=== PATIENT | female | born 1950 | race American Indian/Alaskan Native ===

== ENCOUNTER 2019-03-03 14:01 | Outpatient (CLI) | payer MEDICARE ==
--- NOTE | 2019-03-03 16:36 | Ultrasound Report ---
Bilateral complete breast ultrasound. Clinical History: Patient has recent diagnosis of invasive carcinoma in the right breast. Abnormal ri ght axillary lymph nodes noted on recent MRI. Additionally left breast mass identified on recent MRI Procedure: Real-time ultrasound was utilized to evaluate both breasts. Complete sonographic evaluati on of both breasts including imaging of the 4 quadrants and subareolar areas, as well as both axillas was performed. Comparison: Prior breast MRI, 01/21/2019 and recent bilateral diagnostic mammogram, 03/01/2019 Findings: In the right breast, in the area of the patient's known breast carcinoma at 8-9:00 2 cm fro m the nipple, there is an irregular solid mass measuring 4.2 x 2.6 x 2.4 cm. The mass is very superfi cial and comes within 1-2 mm of the skin. Additionally, at 10:00 5 cm from the nipple there is an irr egular hypoechoic masslike area measuring 2.1 x 0.9 x 1.5 cm. This is suspicious for satellite neopl asm. At 6:00, 4 cm from the nipple, there is a vague hypoechoic area which I suspect will represent d ense fibroglandular tissue. Within the right axilla, there are a few mildly enlarged lymph nodes with diffuse cortical thickening . One of the lymph nodes has prominent focal cortical thickening of 8 mm. In the left breast, in the region of the, MRI and mammographic abnormality at 1:00, there is a hypoe choic irregular mass measuring 5.0 x 3.4 x 2.1 cm. This mass is located 4.5 cm from the nipple. At 12 :00 there is a small hypoechoic irregular mass measuring 8 mm in diameter. At 4:00 7 cm from the nipp le there is a vague hypoechoic area which could just represent fibroglandular tissue. Within the left axilla there is a single lymph node with mild cortical thickening of 4 mm. Impression: 1.4.2 cm biopsy proven breast carcinoma in the right breast at 8-9:00. There is a second masslike are a at 10:00 measuring 2.1 cm in diameter that could represent additional site of malignancy. Multiple abnormal right axillary lymph nodes. 2. There is a 5.0 cm malignant appearing mass in the left breast at 1:00. This corresponds to MRI and mammographic abnormality and is highly suggestive of a breast carcinoma. There are 2 additional abno rmal areas within the left breast, at 12:00 and 4:00 which could represent additional sites of tumor. There is a single left axillary lymph node that demonstrates mild cortical thickening. 3. Right axillary lymph node was biopsied following ultrasound. 4. Malignant-appearing left breast mass at 1:00 will require further evaluation with percutaneous bio psy. Signer Name: Ninfa Kumari MD Signed: 03/03/2019 4:31 PM Workstation Name: [id number]
--- NOTE | 2019-03-03 16:46 | Ultrasound Report ---
ULTRASOUND-GUIDED NEEDLE CORE BIOPSY RIGHT AXILLARY LYMPH NODE WITH CLIP PLACEMENT CLINICAL: Patient has biopsy-proven right breast invasive carcinoma. Recent breast MRI demonstrated a bnormal right axillary lymph nodes. Ultrasound-guided biopsy was requested. FINDINGS: The procedure was explained to the patient and informed consent was obtained. Ultrasound demonstrated the previously identified enlarged right axillary lymph nodes.. The axillary lymph node with the most prominent cortical thickening was selected for biopsy. I marked the breast with a felt tip marker and a timeout was called. The skin was prepped with chlorh exidine and anesthetized with 1% lidocaine. Needle core biopsy was performed through small dermatotomy using ultrasound guidance, 2% lidocaine wi th epinephrine for deep anesthesia and a 14-gauge Achieve biopsy device. 3 cores were obtained and pl aced in formalin. A clip was deployed within the lesion. The patient tolerated the procedure well and there were no apparent convocations. Hemostasis was achi eved with minimal effort and a sterile dressing was applied. Postprocedure mammogram was not obtained due to the axillary location of the lymph node. She left the department in good condition and was given instructions for wound care and follow-up. IMPRESSION: Uncomplicated ultrasound guided needle core biopsy with clip placement right axillary lym ph node. Signer Name: Ninfa Kumari MD Signed: 03/03/2019 4:41 PM Workstation Name: [id number]
== END 2019-03-03 14:02 | disposition home or self-care (01) ==
LOC: SPVWC 14:01
PROVIDERS: ATTEND Surgery
DX: C77.3 Secondary and unspecified malignant neoplasm of axilla and upper limb lymph nodes (principal); C50.911 Malignant neoplasm of unspecified site of right female breast; F17.210 Nicotine dependence, cigarettes, uncomplicated; Z91.041 Radiographic dye allergy status; Z79.899 Other long term (current) drug therapy; Z88.8 Allergy status to other drugs, medicaments and biological substances
CPT/HCPCS: 38505; 76942; 88305

== ENCOUNTER 2019-03-08 13:01 | Outpatient (CLI) | payer MEDICARE ==
--- NOTE | 2019-03-08 15:57 | Ultrasound Report ---
Ultrasound guided left breast biopsy INDICATION: Known right breast cancer, left breast masses COMPARISON: Bilateral breast ultrasound 03/03/2019 Procedure was discussed at length with the patient including possible risks and benefits. Possibility of bleeding and hematoma were discussed. Patient does not have pertinent allergies and is not on ant icoagulant therapy. Opportunity for questions was given. Timeout was performed. The largest of the re cently discovered left breast lesions in the 1:00 position was targeted. Using local anesthesia and a septic technique, under direct sonographic guidance, a 14-gauge Achieve biopsy device was used to obt ain 3 core samples from this mass. A clip was left in place at the end of the procedure at the margin of the mass. Site was secured. Patient tolerated the procedure well. Ultrasound-guided left axillary lymph node biopsy INDICATION: No right breast cancer, left breast masses, single axillary node with cortical thickening COMPARISON: Bilateral breast ultrasound 03/03/2019 Procedure was discussed at length with the patient including possible risks and benefits. Possibility of bleeding and hematoma were discussed. Patient does not have pertinent allergies and is not on ant icoagulant therapy. Opportunity for questions was given. Timeout was performed. Using aseptic techniq ue and local anesthesia, under direct sonographic guidance, an 18-gauge Achieve biopsy device was use d to obtain a single core sample through this node. After this sample was performed the node became d ifficult to clearly identify in the heterogenous axillary tissue. A clip was not left in place due to uncertainty in position. No hematoma was observed and no immediate complication occurred. Patient to lerated the procedure well and left the ultrasound suite for postbiopsy mammogram. [facility] IMPRESSION: Successful biopsies of the largest of the left breast masses and of a small left axillary node. Signer Name: Emory Live MD Signed: 03/08/2019 3:53 PM Workstation Name: [id number]
--- NOTE | 2019-03-08 16:00 | Mammography Report ---
Postbiopsy left mammogram 03/01/2019 INDICATION: Ultrasound-guided biopsy today A marker was performed to document position of a biopsy clip following ultrasound-guided left breast biopsy. Clip is seen at the margin of an area density and distortion in the upper outer quadrant post eriorly appearing to be in appropriate position. Signer Name: Emory Live MD Signed: 03/08/2019 3:56 PM Workstation Name: [id number]
== END 2019-03-08 13:02 | disposition home or self-care (01) ==
LOC: SPVWC 13:01
PROVIDERS: ATTEND Surgery
DX: C50.412 Malignant neoplasm of upper-outer quadrant of left female breast (principal); C50.411 Malignant neoplasm of upper-outer quadrant of right female breast; I89.8 Other specified noninfective disorders of lymphatic vessels and lymph nodes
CPT/HCPCS: 38505; 76942; 88305; 88341; 88342

== ENCOUNTER 2019-03-23 08:22 | Day surgery (SDC) | payer MEDICARE ==
--- NOTE | 2019-03-23 09:17 | Anesthesia Consultation ---
Anesthesia Consult and Med Hx Date of service: 03/23/19 - Airway Anesthetic Teeth Evaluation: Good ROM Head & Neck: Adequate Mental/Hyoid Distance: Adequate Mallampati Class: Class II Intubation Access Assessment: Good - Pulmonary Exam CTA: Yes - Cardiac Exam Cardiac Exam: RRR - Pre-Operative Health Status ASA Pre-Surgery Classification: ASA3 Proposed Anesthetic Plan: MAC - Pulmonary Hx Smoking: Yes (1 PPD X 40 YRS) Hx Sleep Apnea: No (MIGUEL PRE SCREEN LOW RISK) - Cardiovascular System Hx Hypertension: Yes (X 5 YRS) - Central Nervous System Hx Back Pain: Yes (SCIATIC PAIN)
--- NOTE | 2019-03-23 09:17 | Anesthesia Day of Surgery ---
Anesthesia Day of Surgery - Day of Surgery Patient Examined: Yes Patient H&P Reviewed: Yes Patient is NPO: Yes
[2019-03-23] MEDS ORDERED: ZOFRAN IV PRN (09:18)
[2019-03-23] MEDS ORDERED: DILAUDID IV PRN (09:18)
[2019-03-23] MEDS ORDERED: VERSED IV NR (10:00)
[2019-03-23] MEDS ORDERED: LACTATED RINGERS 1,000 ML IV SCH (10:00)
[2019-03-23] MEDS ORDERED: HEPARIN 10,000 UNITS/10 ML ONE (10:33)
[2019-03-23] MEDS ORDERED: MARCAINE 0.25% INFILTRATI ONE ×2 (10:33→11:24)
[2019-03-23] MEDS ORDERED: XYLOCAINE 1% 20 mL ONE (10:33)
[2019-03-23] MEDS ORDERED: NACL 0.9% 100 ML ONE (10:34)
[2019-03-23] MEDS ORDERED: SUBLIMAZE ONE (10:47)
[2019-03-23] MEDS ORDERED: DIPRIVAN 10 MG/ML IV ONE (10:47)
[2019-03-23] MEDS ORDERED: KETAMINE 50 MG/ML-WATER SYRING ONE (10:48)
[2019-03-23] MEDS ORDERED: NACL 0.9% IR ONE (11:23)
[2019-03-23] MEDS ORDERED: HEPARIN 10,000 UNITS/10 ML IV ONE (11:24)
[2019-03-23] MEDS ORDERED: NACL 0.9% IV ONE (11:24)
[2019-03-23] MEDS ORDERED: XYLOCAINE 1% 20 mL INFILTRATI ONE (11:24)
--- NOTE | 2019-03-23 12:11 | Short Stay Summary ---
Short Stay Documentation Date of service: 03/23/19 - History Principal diagnosis: breast cancer H&P: obtained from office - Allergies and Medications Current Medications: Allergies Iodinated Contrast- Oral and IV Dye Allergy (Verified 03/22/19 16:31) Swelling , ITCHING TEGADERM DRESSING Adverse Reaction (Uncoded 03/22/19 16:31) BLISTERS , ITCHING Home Medications Medication Instructions Recorded Confirmed Last Taken Type Carvedilol [Coreg] 6.25 mg PO BID 03/22/19 03/23/19 03/22/19 09:00 History Darunavir/Cob/Emtri/Tenof Alaf 1 each PO DAILY 03/22/19 03/23/19 03/22/19 09:00 History [Symtuza [phone] mg Tab] Fluticasone [Flonase] 1 spray NS BID 03/22/19 03/23/19 03/22/19 07:00 History Losartan/Hydrochlorothiazide 1 each PO DAILY 03/22/19 03/23/19 03/22/19 09:00 History [Losartan-Hctz 100-25 mg Tab] Naproxen [EC-Naproxen] 500 mg PO PRN PRN 03/22/19 03/23/19 03/22/19 19:00 History hydrOXYzine HCL [Atarax] 10 mg PO Q6HR PRN 03/22/19 03/23/19 03/22/19 07:00 History Active Medications Hydromorphone HCl (Dilaudid) 0.5 mg IV Q10MIN PRN PRN Reason: Pain , Severe (7-10) Stop: 03/23/19 20:00 Lactated Ringer's (Lactated Ringers) 1,000 mls @ 100 mls/hr IV DIRECT HALINA Last Admin: 03/23/19 09:45 Dose: 100 mls/hr Documented by: Midazolam HCl (Versed) 2 mg IV PREOP NR Stop: 03/23/19 23:59 Last Admin: 03/23/19 10:20 Dose: 2 mg Documented by: Ondansetron HCl (Zofran) 4 mg IV ONCE PRN PRN Reason: Nausea And Vomiting - Brief post op/procedure progress note Date of procedure: 03/23/19 Pre-op diagnosis: breast cancer Post-op diagnosis: same Procedure: Left internal jugular port placement with mindray ultrasound guidance Anesthesia: MAC, local Findings: good placement of port without PTX on post op CXR Surgeon: ALEXYS VENTURA Estimated blood loss: minimal Pathology: none Condition: stable - Hospital course Hospital course: Pt observed in PACU and discharged to home in stable condition when criteria met - Disposition Condition at discharge: Good Disposition: DC-01 TO HOME OR SELFCARE Short Stay Discharge Plan Activity: advance as tolerated Diet: regular Wound: open to air, per your surgeon's advice Additional Instructions: SEE PRINTED DISCHARGE PAPERWORK Follow up with: EUFEMIA VALDEZ DO [Primary Care Provider] - 7 Days ALEXYS VENTURA DO [Staff Physician] - 10 Days Prescriptions: HYDROcodone/APAP 5-325 [[place] 5/325] 1 each PO Q6HR PRN #15 tablet PRN Reason: Pain
--- NOTE | 2019-03-23 12:47 | Fluoroscopy Report ---
FL central venous dev plct INDICATION / CLINICAL INFORMATION: BILATERAL BREAST CANCER.. Port-A-Cath placement. COMPARISON: None available. FINDINGS: An AP view of the chest reveals a left subclavian Port-A-Cath with the tip overlying the mid right at rium. There is no evidence of pneumothorax. The heart size is borderline. Pulmonary vasculature is no rmal and the lungs are clear. Fluoroscopy time: 0.6 minutes. Fluoroscopic images: 1. IMPRESSION: New left jugular Port-A-Cath with the tip overlying the mid right atrium. No evidence of pneumothorax. Signer Name: Jake Wilson MD Signed: 03/23/2019 12:42 PM Workstation Name: [id number]
--- NOTE | 2019-03-23 13:45 | Operative Report ---
PREOPERATIVE DIAGNOSIS: Breast cancer. POSTOPERATIVE DIAGNOSIS: Breast cancer. PROCEDURE: Left internal jugular port placement with Mindray ultrasound guidance. ANESTHESIA: MAC local. FINDINGS: Good placement of port without pneumothorax and postop chest x-ray. SURGEON: Hannah Hartley DO ESTIMATED BLOOD LOSS: Minimal. PATHOLOGY: None. CONDITION ON DISPOSITION: The patient is stable to PACU. HISTORY OF PRESENT ILLNESS AND INDICATION: The patient is a 68-year-old female who was recently diagnosed with bilateral breast cancer. She was deemed a candidate for chemotherapy via outpatient Oncology and referred to surgery for port placement. I discussed all risks, benefits and alternatives to surgery with the patient and questions answered. Consent obtained. PROCEDURE IN DETAIL: The patient was identified in the preoperative area and taken back to the operating room and placed on the operating table in supine position. After anesthesia was induced, bilateral arms were tucked and all bony prominences padded and a shoulder roll was placed. The upper chest and neck was prepped and draped in the usual sterile fashion. Timeout performed. Using ultrasound guidance, the left subclavian vein and left internal jugular vein were both identified. The left subclavian vein was deep and the internal jugular vein was chosen for access. The skin was anesthetized with local anesthetic and the internal jugular vein on the left accessed on the first stick using ultrasound guidance. There was return of dark red nonpulsatile blood. The wire was threaded without resistance and the positioning confirmed using fluoroscopy. The wire was secured to the drapes using hemostat. I then turned my attention to creating a pocket. A 4-cm transverse incision was made in the left upper chest using a 15 blade after the skin was anesthetized with local anesthetic. Dissection was carried down through the skin and subcutaneous tissue using Bovie electrocautery with hemostasis achieved along the way. Once the prepectoral fascia was reached, a subcutaneous pocket was created for the port using combination of blunt dissection and electrocautery. The pocket was checked for hemostasis, which was carefully ensured. The catheter was then tunneled from the pocket to the wire and a dilator breakaway catheter sheath then inserted over the wire under direct fluoroscopic visualization. The wire and dilator were removed and the catheter was threaded through the breakaway sheath and the breakaway sheath removed in the usual fashion. The tip of the catheter was seen in the right atrium and pulled back until it was at the cavoatrial junction. The entire course of the catheter was identified under fluoroscopy and there were no kinks. The catheter was cut to size and the port assembled in the usual fashion. The port was then sutured into place in two locations using 2-0 Vicryl interrupted sutures to the prepectoral fascia. The port was tested with heparinized saline. There was return of dark red blood and the port flushed easily. The port was then instilled with 3000 units of heparin. The pocket was irrigated and hemostasis ensured. The deep dermal layer was then closed with 3-0 Vicryl interrupted sutures and the skin incisions were both closed with 4-0 Monocryl subcuticular stitches and skin glue. At the end of the case, all sponge, instrument and sharp counts were correct x 2. A postoperative chest x-ray in the OR showed good positioning of the port without pneumothorax. The patient was then taken to PACU in stable condition. JOB# [id number] JONN/OXANA
--- NOTE | 2019-03-23 13:47 | Post Anesthesia Evaluation ---
- Post Anesthesia Evaluation Patient Participated: Yes Airway Patent: Yes Stable Respiratory Function: Yes Nausea/Vomiting: No Temp > 96.8F: Yes Pain Manageable: Yes Adequeate Hydration: Yes Anesthesia Complications: No Block Receding Appropriately: Not Applicable Patient on Ventilator: No
[2019-03-23 15:46] VITALS: BP 152/82
== END 2019-03-23 08:23 | disposition home or self-care (01) ==
LOC: OR 08:22
PROVIDERS: ATTEND Surgery
DX: C50.411 Malignant neoplasm of upper-outer quadrant of right female breast (principal); I10 Essential (primary) hypertension; F17.210 Nicotine dependence, cigarettes, uncomplicated; Z91.041 Radiographic dye allergy status; Z88.8 Allergy status to other drugs, medicaments and biological substances; Z79.899 Other long term (current) drug therapy; Z90.49 Acquired absence of other specified parts of digestive tract; Z90.710 Acquired absence of both cervix and uterus; Z98.890 Other specified postprocedural states; Z86.2 Personal history of diseases of the blood and blood-forming organs and certain disorders involving the immune mechanism
CPT/HCPCS: 36415; 36561; 77001; 84132; C1769; C1788; J1644; J2250; J2704; J3010; J7120

== ENCOUNTER 2019-04-22 09:42 | Outpatient (CLI) | payer MEDICARE ==
--- NOTE | 2019-04-22 14:31 | Nuclear Medicine Report ---
Bone Scan HISTORY: C50.912 MALIGNANT NEOPLASM OF UNSPECIFIED SITE OF LEFT BREAST. TECHNIQUE: Patient was given 26.9 mCi of technetium MDP. COMPARISON: None FINDINGS: No abnormal radiotracer uptake identified to suggest metastatic disease. Mild degenerative uptake in the spine, shoulders, hips, and extremities. IMPRESSION: No evidence of metastatic disease. Signer Name: Bear Choudhury MD Signed: 04/22/2019 2:27 PM Workstation Name: [id number]
== END 2019-04-22 09:43 | disposition home or self-care (01) ==
LOC: NM 09:42
PROVIDERS: ATTEND Internal Medicine Hematology
DX: C50.911 Malignant neoplasm of unspecified site of right female breast (principal); C50.912 Malignant neoplasm of unspecified site of left female breast; B20 Human immunodeficiency virus [HIV] disease; I10 Essential (primary) hypertension; Z90.710 Acquired absence of both cervix and uterus
CPT/HCPCS: 78306; A9503

== ENCOUNTER 2019-05-17 12:44 | Inpatient (IN) | payer MEDICARE ==
--- NOTE | 2019-05-17 13:33 | Emergency Department Report ---
Blank Doc - Documentation Documentation: 68-year-old female that presents with fever, sores in mouth and body aches. Was sent by infectious disease. HX of HIV. This initial assessment/diagnostic orders/clinical plan/treatment(s) is/are subject to change based on patient's health status, clinical progression and re- assessment by fellow clinical providers in the ED. Further treatment and workup at subsequent clinical providers discretion. Patient/guardians urged not to elope from the ED as their condition may be serious if not clinically assessed and managed. Initial orders include: 1- Patient sent to MAIN ED for further evaluation and treatment 2- labs 3- UA
[2019-05-17 14:29] LABS: Red Cell Distribution Width 15.9 % (13.2-15.2)
[2019-05-17 14:45] LABS: Eosinophils # (Auto) 0.1 K/mm3 (0.0-0.4); Hematocrit 28.2 % (30.3-42.9); Hemoglobin 9.4 gm/dl (10.1-14.3); Mean Corpuscular HGB Conc 33 % (30-34); Mean Corpuscular Volume 89 fl (79-97); Monocytes # (Auto) 0.1 K/mm3 (0.0-0.8); Monocytes % (Auto) 10.1 % (0.0-7.3); Platelet Count 108 K/mm3 (140-440); Red Blood Count 3.18 M/mm3 (3.65-5.03)
[2019-05-17 14:46] LABS: Alanine Aminotransferase 17 units/L (7-56); Albumin 3.9 g/dL (3.9-5); BUN/Creatinine Ratio 17; Blood Urea Nitrogen 12 mg/dL (7-17); Calcium 7.6 mg/dL (8.4-10.2); Hemolysis Index 1
[2019-05-17] MEDS ORDERED: NACL 0.9% 1000 ML IV ONE (15:05)
[2019-05-17] MEDS ORDERED: TYLENOL PO ONE (15:10)
--- NOTE | 2019-05-17 15:11 | Emergency Department Report ---
ED General Adult HPI - General Chief complaint: Fever Stated complaint: HIGH/FEVER Time Seen by Provider: 05/17/19 13:32 Source: patient, RN notes reviewed, old records reviewed Mode of arrival: Ambulatory Limitations: No Limitations - History of Present Illness Initial comments: Infectious disease: Dr. Karimi Oncology: Dr. Bull Primary care DrBishnu: Patient cannot recall Past medical history: Obesity, tobacco use or, anxiety, hypertension, breast can cer, hepatitis C, HIV 68-year-old female, not known to this provider previously, last CD4 was 434, viral load less than 20 in November 2018, denies history of opportunistic infections, also history of hepatitis C, treated with harvoni, currently on antiviral therapy, sent to the ER by her infectious disease specialist for weakness and clinical worsening. Apparently, patient has been feeling weak, debilitated, has been having body aches, chills, and "I have no energy." She endorses diffuse body pain, but denies discrete pain. She further endorses that she has difficulty swallowing. Apparently, her viral load has gone up exponentially. Symptoms are constant, worse and with attempting to eat or drink. Patient denies severe headache, neck pain, chest pain, abdominal pain, shortness of breath, urinary symptoms. -: Gradual, week(s) Location: left, right, upper extremity, lower extremity Severity scale (0 -10): 0 Quality: aching Consistency: other Improves with: other Worsens with: other Associated Symptoms: other - Related Data Home Medications Medication Instructions Recorded Confirmed Last Taken Carvedilol [Coreg] 6.25 mg PO BID 03/22/19 05/17/19 05/16/19 Darunavir/Cob/Emtri/Tenof Alaf 1 each PO DAILY 03/22/19 05/17/19 05/16/19 [Symtuza [id number] mg Tab] Fluticasone [Flonase] 1 spray NS BID 03/22/19 05/17/19 05/16/19 Losartan/Hydrochlorothiazide 1 each PO DAILY 03/22/19 05/17/19 05/16/19 [Losartan-Hctz 100-25 mg Tab] Naproxen [EC-Naproxen] 500 mg PO PRN PRN 03/22/19 05/17/19 05/16/19 hydrOXYzine HCL [Atarax] 10 mg PO Q6HR PRN 03/22/19 05/17/19 05/16/19 Previous Rx's Medication Instructions Recorded Last Taken Type HYDROcodone/APAP 5-325 [[place] 1 each PO Q6HR PRN #15 tablet 03/23/19 05/16/19 Rx 5/325] Allergies Allergy/AdvReac Type Severity Reaction Status Date / Time Iodinated Contrast Media Allergy Swelling , Verified 03/22/19 16:31 [Iodinated Contrast- Oral ITCHING and IV Dye] TEGADERM DRESSING AdvReac BLISTERS , Uncoded 03/22/19 16:31 ITCHING ED Review of Systems ROS: Stated complaint: HIGH/FEVER Other details as noted in HPI Constitutional: chills, fever, malaise, weakness Eyes: denies: eye discharge ENT: throat pain Respiratory: denies: wheezing Cardiovascular: denies: syncope Gastrointestinal: denies: abdominal pain Genitourinary: denies: dysuria Musculoskeletal: arthralgia, myalgia Skin: denies: lesions Neurological: weakness Hematological/Lymphatic: denies: easy bleeding ED Past Medical Hx - Past Medical History Previous Medical History?: Yes Hx Hypertension: Yes (X 5 YRS) Hx CVA: No Hx Heart Attack/AMI: No Hx Congestive Heart Failure: No Hx Diabetes: No Hx Deep Vein Thrombosis: No Hx Pulmonary Embolism: No Hx GERD: No Hx Liver Disease: No Hx Renal Disease: No Hx of Cancer: No Hx Sickle Cell Disease: No Hx Arthritis: No Hx Headaches / Migraines: No Hx Seizures: No Hx Kidney Stones: No Hx Psychiatric Treatment: No Hx Asthma: No Hx COPD: No Hx Tuberculosis: No Hx Dementia: No Hx HIV: Yes - Surgical History Past Surgical History?: Yes Hx Coronary Stent: No Hx Open Heart Surgery: No Hx Pacemaker: No Hx Internal Defibrillator: No Hx Cholecystectomy: No Hx Appendectomy: Yes Hx Breast Surgery: Yes (BREAST BX) - Social History Smoking Status: Current Every Day Smoker Substance Use Type: None - Medications Home Medications: Home Medications Medication Instructions Recorded Confirmed Last Taken Type Carvedilol [Coreg] 6.25 mg PO BID 03/22/19 05/17/19 05/16/19 History Darunavir/Cob/Emtri/Tenof Alaf 1 each PO DAILY 03/22/19 05/17/19 05/16/19 History [Symtuza [phone] mg Tab] Fluticasone [Flonase] 1 spray NS BID 03/22/19 05/17/19 05/16/19 History Losartan/Hydrochlorothiazide 1 each PO DAILY 03/22/19 05/17/19 05/16/19 History [Losartan-Hctz 100-25 mg Tab] Naproxen [EC-Naproxen] 500 mg PO PRN PRN 03/22/19 05/17/19 05/16/19 History hydrOXYzine HCL [Atarax] 10 mg PO Q6HR PRN 03/22/19 05/17/19 05/16/19 History HYDROcodone/APAP 5-325 [[place] 1 each PO Q6HR PRN #15 tablet 03/23/19 05/17/19 05/16/19 Rx 5/325] ED Physical Exam - General Limitations: No Limitations, Other (during the entirety of history and physical, I am business services vice president and escorted by nurse Michelle Mack) General appearance: alert, in no apparent distress - Head Head exam: Present: atraumatic, normocephalic - Eye Eye exam: Present: normal appearance, EOMI. Absent: nystagmus - ENT ENT exam: Present: normal exam (there is no sinus tenderness. There is no tympanic membrane erythema. There is no mastoid tenderness.), mucous membranes dry, TM's normal bilaterally, normal external ear exam, other (thrush noted in the oropharynx) - Neck Neck exam: Present: normal inspection, full ROM. Absent: tenderness, meningismus - Respiratory Respiratory exam: Present: normal lung sounds bilaterally. Absent: respiratory distress - Cardiovascular Cardiovascular Exam: Present: normal rhythm, tachycardia, normal heart sounds. Absent: systolic murmur, diastolic murmur, rubs, gallop - GI/Abdominal GI/Abdominal exam: Present: soft. Absent: distended, tenderness, guarding, pulsatile mass - Extremities Exam Extremities exam: Present: normal inspection, full ROM, other (2+ pulses noted in the bilateral upper, lower extremities. There is no long bone tenderness. Musculoskeletal compartments are soft. The pelvis is stable.). Absent: pedal edema, joint swelling, calf tenderness - Back Exam Back exam: Present: normal inspection, full ROM. Absent: tenderness, CVA tenderness (R), CVA tenderness (L), paraspinal tenderness, vertebral tenderness - Neurological Exam Neurological exam: Present: alert, oriented X3, other (there is no facial droop. The tongue is midline. Extraocular movements are intact bilaterally. Patient speaking in full complete sentences. Shoulder shrug is intact bilaterally. Hearing is grossly intact bilaterally. Visual acuity intact to finger counting and color perception at a close distance. 5/5 strength 4 extremities. Sensation intact to light touch in 4 extremities.) - Psychiatric Psychiatric exam: Present: anxious - Skin Skin exam: Present: warm, dry, intact, normal color. Absent: rash ED Course Vital Signs 05/17/19 05/17/19 05/17/19 12:53 14:14 14:53 Temperature 99.9 F H 99.1 F Pulse Rate 125 H 127 H Respiratory 16 16 Rate Blood Pressure 115/66 142/73 Blood Pressure 89/63 [Right] O2 Sat by Pulse 97 100 Oximetry 05/17/19 05/17/19 05/17/19 15:00 15:05 15:11 Temperature Pulse Rate 125 H 122 H Respiratory 18 12 17 Rate Blood Pressure 142/73 142/73 Blood Pressure [Right] O2 Sat by Pulse 97 98 Oximetry 05/17/19 05/17/19 05/17/19 15:21 15:31 15:41 Temperature Pulse Rate 121 H 123 H 121 H Respiratory 20 16 23 Rate Blood Pressure 142/73 142/73 142/73 Blood Pressure [Right] O2 Sat by Pulse 97 99 99 Oximetry 05/17/19 05/17/19 05/17/19 15:51 16:01 16:11 Temperature Pulse Rate 121 H 119 H 120 H Respiratory 26 H 16 27 H Rate Blood Pressure 142/73 142/73 185/97 Blood Pressure [Right] O2 Sat by Pulse 97 96 98 Oximetry 05/17/19 05/17/19 05/17/19 16:21 16:31 16:40 Temperature Pulse Rate 120 H 119 H 120 H Respiratory 20 26 H 20 Rate Blood Pressure 185/97 185/97 185/97 Blood Pressure [Right] O2 Sat by Pulse 98 97 97 Oximetry 05/17/19 05/17/19 16:50 17:00 Temperature Pulse Rate 120 H 117 H Respiratory 16 16 Rate Blood Pressure 185/97 Blood Pressure [Right] O2 Sat by Pulse 98 98 Oximetry ED Medical Decision Making - Lab Data Result diagrams: 05/17/19 13:51 05/17/19 13:51 Vital Signs 05/17/19 05/17/19 12:53 14:14 Temperature 99.9 F H 99.1 F Pulse Rate 125 H 127 H Respiratory 16 16 Rate Blood Pressure 115/66 Blood Pressure 89/63 [Right] O2 Sat by Pulse 97 100 Oximetry Lab Results 05/17/19 05/17/19 05/17/19 Range/Units 13:51 13:51 13:51 WBC 0.5 L* (4.5-11.0) K/mm3 RBC 3.18 L (3.65-5.03) M/mm3 Hgb 9.4 L (10.1-14.3) gm/dl Hct 28.2 L (30.3-42.9) % MCV 89 (79-97) fl MCH 30 (28-32) pg MCHC 33 (30-34) % RDW 15.9 H (13.2-15.2) % Plt Count 108 L (140-440) K/mm3 Lymph % (Auto) Carton Forming Machine Adjuster [place] % (Auto) 10.1 H (0.0-7.3) % [place] # 0.1 (0.0-0.8) K/mm3 Eos # 0.1 (0.0-0.4) K/mm3 Baso # 0.0 (0.0-0.1) K/mm3 Add Manual Diff Complete Total Counted 15 Seg Neutrophils % Cart[employer] Forming Machine Adjuster Seg Neuts % (Manual) 6.7 L (40.0-70.0) % Band Neutrophils % 0 % Lymphocytes % (Manual) 80.0 H (13.4-35.0) % Reactive Lymphs % (Man) 0 % Monocytes % (Manual) 0 (0.0-7.3) % Eosinophils % (Manual) 13.3 H (0.0-4.3) % Basophils % (Manual) 0 (0.0-1.8) % Metamyelocytes % 0 % Myelocytes % 0 % Promyelocytes % 0 % Blast Cells % 0 % Nucleated RBC % Not Reportable Seg Neutrophils # 0.0 L (1.8-7.7) K/mm3 Seg Neutrophils # Man 0.0 L (1.8-7.7) K/mm3 Band Neutrophils # 0.0 K/mm3 Lymphocytes # (Manual) 0.4 L (1.2-5.4) K/mm3 Abs React Lymphs (Man) 0.0 K/mm3 Monocytes # (Manual) 0.0 (0.0-0.8) K/mm3 Eosinophils # (Manual) 0.1 (0.0-0.4) K/mm3 Basophils # (Manual) 0.0 (0.0-0.1) K/mm3 Metamyelocytes # 0.0 K/mm3 Myelocytes # 0.0 K/mm3 Promyelocytes # 0.0 K/mm3 Blast Cells # 0.0 K/mm3 WBC Morphology Not Reportable Hypersegmented Neuts Not Reportable Hyposegmented Neuts Not Reportable Hypogranular Neuts Not Reportable Smudge Cells Not Reportable Toxic Granulation Not Reportable Toxic Vacuolation Not Reportable Dohle Bodies Not Reportable Pelger-Huet Anomaly Not Reportable Alfonzo Rods Not Reportable Platelet Estimate Consistent w auto Clumped Platelets Not Reportable Plt Clumps, EDTA Not Reportable Large Platelets Not Reportable Giant Platelets Not Reportable Platelet Satelliting Not Reportable Plt Morphology Comment Not Reportable RBC Morphology Not Reportable Dimorphic RBCs Not Reportable Polychromasia Not Reportable Hypochromasia Not Reportable Poikilocytosis Not Reportable Anisocytosis Not Reportable Microcytosis Not Reportable Macrocytosis Not Reportable Spherocytes Not Reportable Pappenheimer Bodies Not Reportable Sickle Cells Not Reportable Target Cells Not Reportable Tear Drop Cells Not Reportable Ovalocytes Not Reportable Helmet Cells Not Reportable [place] Bodies Not Reportable [place] Rings Not Reportable [place] Cells Not Reportable Bite Cells Not Reportable Crenated Cell Not Reportable Elliptocytes Not Reportable Acanthocytes (Spur) Not Reportable Rouleaux Not Reportable Hemoglobin C Crystals Not Reportable Schistocytes Not Reportable Malaria parasites Not Reportable Gene Bodies Not Reportable Hem Pathologist Commnt No Sodium 139 (137-145) mmol/L Potassium 3.5 L (3.6-5.0) mmol/L Chloride 105.5 (98-107) mmol/L Carbon Dioxide 20 L (22-30) mmol/L Anion Gap 17 mmol/L BUN 12 (7-17) mg/dL Creatinine 0.7 (0.7-1.2) mg/dL Estimated GFR > 60 ml/min BUN/Creatinine Ratio 17 % Glucose 105 H (65-100) mg/dL Lactic Acid 1.30 (0.7-2.0) mmol/L Calcium 7.6 L (8.4-10.2) mg/dL Total Bilirubin 0.50 (0.1-1.2) mg/dL AST 31 (5-40) units/L ALT 17 (7-56) units/L Alkaline Phosphatase 67 (35-129) units/L Total Protein 6.9 (6.3-8.2) g/dL Albumin 3.9 (3.9-5) g/dL Albumin/Globulin Ratio 1.3 % - EKG Data -: EKG Interpreted by Ca EKG shows normal: sinus rhythm Rate: normal - EKG Data 05/17/19 16:20 The EKG shows low voltage, sinus tachycardia 120 bpm, QTC 480 ms, motion artifact, no endorsement of chest pain, MS interval is within normal limits, the EKG is abnormal, the EKG is not consistent with ST elevation myocardial infarction. - Radiology Data Radiology results: pending, report reviewed, image reviewed X-ray the chest is negative for acute disease. Atelectatic changes are noted - Medical Decision Making Differential diagnosis, including not limited to: Bacteremia, viremia, neutropenia associated with cancer, chemotherapy, worsening HIV Thrush, disseminated HIV Assessment and plan: 68-year-old female who is ill-appearing with dry mucous membranes, diffuse myalgias, found to be neutropenic, tachycardic, with a low- grade fever, ruling in for acute neutropenic crisis, and systemic inflammatory response syndrome. She meets criteria for hospitalization. Patient will be started on the sepsis pathway. She'll be started on 2 g of cefepime. Contacted infectious disease, Dr. Karimi, who also recommended fluconazole. She indicates that Dr. Varghese will follow in consultation. Patient will be initiated on neutropenic precautions. Explained need for admission to the patient who verbalizes understanding. Hospital physician, Dr. Avelar, accepts patient to the medical service for abhilash tropenic crisis. Critical care attestation.: If time is entered above; I have spent that time in minutes in the direct care of this critically ill patient, excluding procedure time. ED Disposition Clinical Impression: SIRS (systemic inflammatory response syndrome) Neutropenia Qualifiers: Neutropenia type: due to infection Qualified Code(s): D70.3 - Neutropenia due to infection Disposition: DC-09 OP ADMIT IP TO THIS HOSP Is pt being admited?: Yes Condition: Fair
--- NOTE | 2019-05-17 15:12 | History and Physical Report ---
History of Present Illness Chief complaint: Im having fever History of present illness: 68 YO Female with HIV, HTN, Obesity, BrCa, HCV, CD4 count of 434, Nicotine Dependence presents to ED for evaluation. Pt is lethargic at time of my evaluation but is able to provide history. Pt states that she has experienced generalized weakness, subjective fever, and loss of appetite over the past 3 days with persistent symptoms over the same time frame. Pt states that " I have no energy, and I feel wiped out". Pt seen by her Infectious Disease physician and sent [facility] for further evaluation. Pt seen and evaluated in ED and found to have Sepsis, Neutropenia, Acidosis, and HIV Disease. Pt initiated on neutropenia precautions and admitted to [facility]. QSOFA Score:2 at time of admission. No prior admission for review. All listed medication reconciled at time of admission. Past History Past Medical History: other (see hpi) Past Surgical History: appendectomy, Other (breast biopsy) Social history: single, smoking. denies: alcohol abuse, prescription drug abuse Family history: no significant family history (reviewed) Medications and Allergies Allergies Allergy/AdvReac Type Severity Reaction Status Date / Time Iodinated Contrast Media Allergy Swelling , Verified 03/22/19 16:31 [Iodinated Contrast- Oral ITCHING and IV Dye] TEGADERM DRESSING AdvReac BLISTERS , Uncoded 03/22/19 16:31 ITCHING Home Medications Medication Instructions Recorded Confirmed Last Taken Type Carvedilol [Coreg] 6.25 mg PO BID 03/22/19 05/17/19 05/16/19 History Darunavir/Cob/Emtri/Tenof Alaf 1 each PO DAILY 03/22/19 05/17/19 05/16/19 History [Symtuza [id number] mg Tab] Fluticasone [Flonase] 1 spray NS BID 03/22/19 05/17/19 05/16/19 History Losartan/Hydrochlorothiazide 1 each PO DAILY 03/22/19 05/17/19 05/16/19 History [Losartan-Hctz 100-25 mg Tab] Naproxen [EC-Naproxen] 500 mg PO PRN PRN 03/22/19 05/17/19 05/16/19 History hydrOXYzine HCL [Atarax] 10 mg PO Q6HR PRN 03/22/19 05/17/19 05/16/19 History HYDROcodone/APAP 5-325 [[place] 1 each PO Q6HR PRN #15 tablet 03/23/19 05/17/19 05/16/19 Rx 5/325] Active Meds: Active Medications Cefepime HCl (Maxipime/Ns 2 Gm/100 Ml) 2 gm in 100 mls @ 200 mls/hr IV NOW HALINA; Protocol Fluconazole (Diflucan) 200 mg in 100 mls @ 100 mls/hr IV Q24HR HALINA; Protocol Review of Systems Constitutional: fever, fatigue, weakness, no weight loss, no weight gain, no chills Ears, nose, mouth and throat: no ear pain, no ear discharge, no tinnitis, no decreased hearing, no nose pain, no nasal congestion Breasts: no change in shape, no swelling, no mass Cardiovascular: no chest pain, no orthopnea, no palpitations, no rapid/irregular heart beat, no edema, no lightheadedness Respiratory: no cough, no cough with sputum, no excessive sputum, no hemoptysis, no shortness of breath Gastrointestinal: no nausea, no vomiting, no diarrhea, no constipation, no he matemesis Genitourinary Female: no pelvic pain, no flank pain, no menorrhagia, no dysuria, no urgency, no post void dribbling Rectal: no pain, no incontinence, no bleeding Musculoskeletal: no neck stiffness, no neck pain, no shooting arm pain, no shooting leg pain, no leg numbness/tingling Integumentary: no rash, no pruritis, no redness, no sores, no jaundice, no boils Neurological: no head injury, no transient paralysis, no weakness, no parathesias, no numbness Psychiatric: no anxiety, no change in sleep habits, no sleep disturbances, no hypersomnia, no change in appetite, no change in libido Endocrine: no cold intolerance, no polyphagia, no polydipsia, no polyuria, no excessive sweating, no flushing Hematologic/Lymphatic: no easy bruising, no easy bleeding, no lymphadenopathy Allergic/Immunologic: no urticaria, no allergic rhinitis, no persistent infections, no anaphylaxis, no angioedema Exam - Constitutional Vitals: Temp Pulse Resp BP Pulse Ox 99.1 F 127 H 16 89/63 100 05/17/19 14:14 05/17/19 14:14 05/17/19 14:14 05/17/19 14:14 05/17/19 14:14 General appearance: Present: mild distress, obese - EENT Eyes: Present: PERRL ENT: hearing intact, clear oral mucosa - Neck Neck: Present: supple, normal ROM - Respiratory Respiratory effort: normal Respiratory: bilateral: CTA - Cardiovascular Heart Sounds: Present: S1 & S2. Absent: rub, click - Extremities Extremities: pulses symmetrical, No edema Peripheral Pulses: within normal limits - Abdominal General gastrointestinal: Present: soft, non-tender, non-distended, normal bowel sounds Female genitourinary: Present: normal - Integumentary Integumentary: Present: clear, warm, dry - Musculoskeletal Musculoskeletal: gait normal, strength equal bilaterally - Psychiatric Psychiatric: appropriate mood/affect, intact judgment & insight - Neurologic Neurologic: CNII-XII intact, moves all extremities Results - Labs CBC & Chem 7: 05/17/19 13:51 05/17/19 13:51 Labs: Abnormal lab results 05/17/19 05/17/19 Range/Units 13:51 13:51 WBC 0.5 L* (4.5-11.0) K/mm3 RBC 3.18 L (3.65-5.03) M/mm3 Hgb 9.4 L (10.1-14.3) gm/dl Hct 28.2 L (30.3-42.9) % RDW 15.9 H (13.2-15.2) % Plt Count 108 L (140-440) K/mm3 [place] % (Auto) 10.1 H (0.0-7.3) % Seg Neutrophils # 0.0 L (1.8-7.7) K/mm3 Potassium 3.5 L (3.6-5.0) mmol/L Carbon Dioxide 20 L (22-30) mmol/L Glucose 105 H (65-100) mg/dL Calcium 7.6 L (8.4-10.2) mg/dL Assessment and Plan - Patient Problems (1) Sepsis Current Visit: Yes Status: Acute Plan to address problem: Sepsis protocol: IV antibiotic therapy, neutropenic precautions, IVF resuscitation therapy, CBC, CMP, CT Head, monitor uop q shift, serial lactic acid, chest x ray, urinalysis. (2) Acidosis Current Visit: Yes Status: Acute Plan to address problem: IVF resuscitation therapy, supportive care (3) HIV (human immunodeficiency virus infection) Current Visit: Yes Status: Acute Qualifiers: HIV symptom status: unspecified Qualified Code(s): B20 - Human immunodefi ciency virus [HIV] disease Plan to address problem: Continue Antiretroviral therapy, ID consulted, continue current care. (4) Neutropenia Current Visit: No Status: Acute Qualifiers: Neutropenia type: due to infection Qualified Code(s): D70.3 - Neutropenia due to infection Plan to address problem: Neutropenia precautions. (5) DVT prophylaxis Current Visit: Yes Status: Acute Plan to address problem: SCD to BLE while in bed,
[2019-05-17] MEDS ORDERED: SODIUM CHLORIDE FLUSH SYRINGE 10 ML IV PRN (15:13)
[2019-05-17] MEDS ORDERED: ATARAX PO PRN (15:18)
[2019-05-17] MEDS ORDERED: NAPROXEN 500 MG PO PRN (15:18)
--- NOTE | 2019-05-17 15:44 | XRay Report ---
CHEST 1 VIEW INDICATION: sepsis weak. COMPARISON: 03/23/2019 FINDINGS: Support devices: Left [id number] remains in the same position terminating in the right atrium. Heart: Within normal limits. Lungs/Pleura: Minor linear atelectasis has developed in both lower lung zones. No evidence for pneumo jules, pleural effusion or pneumothorax. Additional findings: None. IMPRESSION: No acute findings. Atelectatic changes in the lower lobes. Signer Name: Faheem Holbrook Jr, MD Signed: 05/17/2019 3:40 PM Workstation Name: [id number]
[2019-05-17] MEDS ORDERED: NAPROXEN PO PRN (15:55)
[2019-05-17] MEDS ORDERED: CEFEPIME/NS 2 GM/100 ML 2 GM/100 ML BAG IV SCH (16:00)
[2019-05-17 16:11] LABS: Basophils % (Manual) 0 % (0.0-1.8); Eosinophils % (Manual) 13.3 % (0.0-4.3); Monocytes % (Manual) 0 % (0.0-7.3); Total Cells Counted 15
[2019-05-17 16:12] LABS: Platelet Estimate Consistent w Auto
[2019-05-17] MEDS: DIFLUCAN 200 MG/100 ML BAG IV SCH (17:57)
[2019-05-17] MEDS: NORCO 5/325 PO PRN (17:57)
[2019-05-17 21:14] LABS: Bacteria,Urine 3+ /HPF (Negative); Bilirubin,Urine NEG (Negative); Blood,Urine NEG (Negative); Color,Urine Yellow (Yellow); Mucus,Urine FEW /HPF; Protein,Urine <15 mg/dL mg/dL (Negative); Urobilinogen,Urine < 2.0 mg/dL (<2.0)
[2019-05-17] MEDS: SODIUM CHLORIDE FLUSH SYRINGE 10 ML IV SCH (22:42)
[2019-05-17] MEDS: FLONASE NS SCH (22:42)
[2019-05-18] MEDS: NORCO 5/325 PO PRN ×2 (00:21→06:09)
[2019-05-18 09:04] LABS: Hematocrit 26.2 % (30.3-42.9); Hemoglobin 8.7 gm/dl (10.1-14.3); Mean Corpuscular HGB Conc 33 % (30-34); Mean Corpuscular Volume 89 fl (79-97); Red Blood Count 2.95 M/mm3 (3.65-5.03); Red Cell Distribution Width 15.5 % (13.2-15.2)
[2019-05-18 09:05] LABS: Platelet Count 106 K/mm3 (140-440)
[2019-05-18 09:17] LABS: BUN/Creatinine Ratio 15; Blood Urea Nitrogen 9 mg/dL (7-17); Hemolysis Index 11
[2019-05-18] MEDS ORDERED: MORPHINE IV PRN (09:57)
[2019-05-18] MEDS: FLONASE NS SCH ×2 (10:51→22:26)
[2019-05-18] MEDS: DIFLUCAN 200 MG/100 ML BAG IV SCH (10:52)
[2019-05-18] MEDS: SODIUM CHLORIDE FLUSH SYRINGE 10 ML IV SCH ×2 (10:53→22:26)
[2019-05-18 11:25] LABS: Anisocytosis Few; Basophils % (Manual) 1.2 % (0.0-1.8); Eosinophils % (Manual) 4.7 % (0.0-4.3); Giant Platelets Rare; Monocytes % (Manual) 37.6 % (0.0-7.3); Platelet Estimate Consistent w Auto; Poikilocytosis Few; Total Cells Counted 85
[2019-05-18] MEDS ORDERED: CEFEPIME/NS 1 GM/100 ML 1 GM/100 ML BAG IV SCH (14:00)
[2019-05-18] MEDS: [UNRECOGNIZED DRUG - OTHER] PO SCH (14:01)
[2019-05-18] MEDS: MAGIC MOUTHWASH PO SCH ×3 (14:02→20:37)
--- NOTE | 2019-05-18 15:08 | Consultation ---
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 She also has history of HCV treated with Harvoni in 2017, has hypertension, tobacco abuse, former IVDU quit 21 years ago and recent diagnosis of breast cancer for which she is on chemotherapy, last chemo on 05/11/2019. She had recently been diagnosed with a urinary tract infection treated with levofloxacin. She came to the ID clinic (Dr. Karimi) yesterday with complaints of oral mucositis, inability to keep food down, low grade fever and was sent to the ER due to concern for sepsis in immunocompromised patient. She was noted to have neutropenia. ID consulted for management. Review of Systems: General: no fevers,chills or rigors HEENT: no new visual disturbance Respiratory: No cough, sputum, hemoptysis or shortness of breath Cardiovascular: No chest pain, syncope Gastrointestinal: + nausea, vomiting, no diarrhea. dysphagia + Genitourinary: No dysuria or hematuria Musculoskeletal: No new or worsening neck pain or back pain Neurologic: No headaches, seizures Hematologic: No easy bruising or bleeding Endocrine: No night sweats or acute weight loss Skin: negative for rash, jaundice Psychiatric: No suicidal or homicidal ideation Past History Past Medical History: other (see hpi) Past Surgical History: appendectomy, Other (breast biopsy) Social history: single, smoking. denies: alcohol abuse, prescription drug abuse Family history: no significant family history (reviewed) Medications and Allergies Allergies Allergy/AdvReac Type Severity Reaction Status Date / Time Iodinated Contrast Media Allergy Swelling , Verified 03/22/19 16:31 [Iodinated Contrast- Oral ITCHING and IV Dye] TEGADERM DRESSING AdvReac BLISTERS , Uncoded 03/22/19 16:31 ITCHING Home Medications Medication Instructions Recorded Confirmed Last Taken Type Carvedilol [Coreg] 6.25 mg PO BID 03/22/19 05/17/19 05/16/19 History Darunavir/Cob/Emtri/Tenof Alaf 1 each PO DAILY 03/22/19 05/17/19 05/16/19 History [Symtuza [id number] mg Tab] Fluticasone [Flonase] 1 spray NS BID 03/22/19 05/17/19 05/16/19 History Losartan/Hydrochlorothiazide 1 each PO DAILY 03/22/19 05/17/19 05/16/19 History [Losartan-Hctz 100-25 mg Tab] Naproxen [EC-Naproxen] 500 mg PO PRN PRN 03/22/19 05/17/19 05/16/19 History hydrOXYzine HCL [Atarax] 10 mg PO Q6HR PRN 03/22/19 05/17/19 05/16/19 History HYDROcodone/APAP 5-325 [[place] 1 each PO Q6HR PRN #15 tablet 03/23/19 05/17/19 05/16/19 Rx 5/325] Active Meds: Active Medications Acetaminophen/Hydrocodone Bitart ([place] 5/325) 1 each PO Q6H PRN PRN Reason: Pain, Moderate (4-6) Last Admin: 05/18/19 06:09 Dose: 1 each Documented by: Fluticasone Propionate (Flonase) 50 mcg NS BID HALINA Last Admin: 05/18/19 10:51 Dose: 50 mcg Documented by: Hydroxyzine HCl (Atarax) 10 mg PO Q6HR PRN PRN Reason: Itching Fluconazole (Diflucan) 200 mg in 100 mls @ 100 mls/hr IV Q24HR HALINA; Protocol Last Admin: 05/18/19 10:52 Dose: 100 mls/hr Documented by: Cefepime HCl (Maxipime/Ns 1 Gm/100 Ml) 1 gm in 100 mls @ 200 mls/hr IV Q8HR HALINA; Protocol Last Admin: 05/18/19 14:02 Dose: 200 mls/hr Documented by: Lidocaine HCl (Magic Mouthwash) 15 ml PO TID HALINA Last Admin: 05/18/19 14:02 Dose: 15 ml Documented by: Miscellaneous Medication (Darunavir/Cob/Emtri/Tenof Alaf [Symtuza [id number] Mg Tab]) 1 each PO DAILY HALINA Last Admin: 05/18/19 14:01 Dose: 1 each Documented by: Morphine Sulfate (Morphine) 2 mg IV Q3H PRN PRN Reason: Pain, Moderate (4-6) Naproxen (Naprosyn) 500 mg PO Q12H PRN PRN Reason: Pain, Mild (1-3) Sodium Chloride (Sodium Chloride Flush Syringe 10 Ml) 10 ml IV BID [facility] Last Admin: 05/18/19 10:53 Dose: 10 ml Documented by: Sodium Chloride (Sodium Chloride Flush Syringe 10 Ml) 10 ml IV PRN PRN PRN Reason: LINE FLUSH Physical Examination - Physical Exam Narrative exam: Physical Exam: Constitutional: Alert, cooperative. No acute distress Head, Ears, Nose: Normocephalic, atraumatic. External ears, nose normal Eyes: Conjunctivae/corneas clear. No icterus. No ptosis. Neck: Supple, no meningeal signs Oral: thrush + with mucositis. Cardiovascular: S1, S2 normal. Respiratory: Good air entry, clear to auscultation bilaterally GI: Soft, non-tender; bowel sounds normal. No peritoneal signs Musculoskeletal: No pedal edema, no cyanosis. No PORT site tenderness Skin: No rash or abscess Hem/Lymphatic: No palpable cervical or supraclavicular nodes. No lymphangitis Psych: Mood ok. Affect normal Neurological: Awake, alert, oriented. No gross abnormality - Constitutional Vitals: Vital Signs Temp Pulse Resp BP Pulse Ox 99.5 F 117 H 15 128/75 95 05/18/19 12:00 05/18/19 12:00 05/18/19 12:00 05/18/19 12:00 05/18/19 12:00 Temperature -Last 24 Hours Temperature 99.5 F Temperature 99.4 F Temperature 98.9 F Temperature 99.2 F Temperature 99.2 F Temperature 99.9 F Results - Labs CBC & Chem 7: 05/18/19 08:18 05/18/19 08:18 Labs: Abnormal lab results 05/17/19 05/18/19 05/18/19 Range/Units 13:51 08:18 08:18 WBC 0.5 L* (4.5-11.0) K/mm3 RBC 2.95 L (3.65-5.03) M/mm3 Hgb 8.7 L (10.1-14.3) gm/dl Hct 26.2 L (30.3-42.9) % RDW 15.5 H (13.2-15.2) % Plt Count 106 L (140-440) K/mm3 Seg Neuts % (Manual) 6.7 L 2.4 L (40.0-70.0) % Lymphocytes % (Manual) 80.0 H 54.1 H (13.4-35.0) % Monocytes % (Manual) 37.6 H (0.0-7.3) % Eosinophils % (Manual) 13.3 H 4.7 H (0.0-4.3) % Seg Neutrophils # Man 0.0 L 0.0 L (1.8-7.7) K/mm3 Lymphocytes # (Manual) 0.4 L 0.3 L (1.2-5.4) K/mm3 Potassium 3.1 L (3.6-5.0) mmol/L Chloride 107.4 H (98-107) mmol/L Carbon Dioxide 19 L (22-30) mmol/L Creatinine 0.6 L (0.7-1.2) mg/dL Calcium 7.0 L (8.4-10.2) mg/dL - Imaging and Cardiology Chest x-ray: report reviewed, image reviewed (PORT +, no pneumonia seen) Assessment and Plan Cultures: 05/17/2019 blood culture: No growth A/P: 68-year-old female with HIV since 1989, currently on Symtuza with good compliance, 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 She also has history of HCV treated with Harvoni in 2017, has hypertension, tobacco abuse, former IVDU quit 21 years ago and recent diagnosis of breast cancer for which she is on chemotherapy, last chemo on 05/11/2019 now with: 1) Febrile neutropenia: likely from chemotherapy. Source of infection unclear. ?mucositis v/s bacteremia v/s UTI (less likely, no urinary symptoms). No pneumonia on CXR. 2) Oropharyngeal candidiasis with mucositis: IV Fluconazole started. 3) HIV: continue Symtuza. Follows with Dr. Karimi in ID clinic. 4) Thrombocytopenia: likely from recent chemo. Recs: Follow up blood and urine cultures empiric Cefepime and Fluconazole (doses increased) continue Symtuza (patient's own supply) monitor WBC, may need luzgen Yoel Varghese MD, FACP [facility] C: [phone] O: [phone] F: [phone]
--- NOTE | 2019-05-18 15:59 | Progress Note ---
Assessment and Plan Assessment and plan: (1) Neutropenic fever - Patient is on IV cefepime - No fever after admission - ID saw the patient and a comment to continue the cefepime (2) Acidosis - IV fluids (3) HIV (human immunodeficiency virus infection) Continue symthuza. (4) oral candidiasis - Patient is on IV fluconazole - ID increase the dose (5) DVT prophylaxis SCD to BLE while in bed, History Interval history: Patient was seen and a lot of this morning, patient is complaining of difficulty of swallowing and asked me to change her pain medicine to IV. Hospitalist Physical - Physical exam Narrative exam: Not in cardiopulmonary distress. The patient appeared well nourished and normally developed. Vital signs as documented. Head exam is unremarkable. Oral trush No scleral icterus . Neck is without jugular venous distension, thyromegaly, or carotid bruits. Lungs are clear to auscultation. Cardiac exam reveals regular rate and Rhythm. First and second heart sounds normal. No murmurs, rubs or gallops. Abdominal exam reveals normal bowel sounds, no masses, no organomegaly and no aortic enlargement. Extremities are nonedematous and both femoral and pedal pulses are normal. TREATER: Alert and oriented 3. No focal weakness. - Constitutional Vitals: Temp Pulse Resp BP Pulse Ox 99.5 F 117 H 15 128/75 95 05/18/19 12:00 05/18/19 12:00 05/18/19 12:00 05/18/19 12:00 05/18/19 12:00 General appearance: Present: mild distress, obese Results - Labs CBC & Chem 7: 05/18/19 08:18 05/18/19 08:18 Labs: Laboratory Last Values WBC 0.5 K/mm3 (4.5-11.0) L* 05/18/19 08:18 RBC 2.95 M/mm3 (3.65-5.03) L 05/18/19 08:18 Hgb 8.7 gm/dl (10.1-14.3) L 05/18/19 08:18 Hct 26.2 % (30.3-42.9) L 05/18/19 08:18 MCV 89 fl (79-97) 05/18/19 08:18 MCH 29 pg (28-32) 05/18/19 08:18 MCHC 33 % (30-34) 05/18/19 08:18 RDW 15.5 % (13.2-15.2) H 05/18/19 08:18 Plt Count 106 K/mm3 (140-440) L 05/18/19 08:18 Lymph % (Auto) Pipe Line Walker 05/17/19 13:51 [place] % (Auto) Pipe Line Walker 05/18/19 08:18 [place] # 0.1 K/mm3 (0.0-0.8) 05/17/19 13:51 Eos # 0.1 K/mm3 (0.0-0.4) 05/17/19 13:51 Baso # 0.0 K/mm3 (0.0-0.1) 05/17/19 13:51 Add Manual Diff Complete 05/18/19 08:18 Total Counted 85 05/18/19 08:18 Seg Neutrophils % Pipe Line Walker 05/17/19 13:51 Seg Neuts % (Manual) 2.4 % (40.0-70.0) L 05/18/19 08:18 Band Neutrophils % 0 % 05/18/19 08:18 Lymphocytes % (Manual) 54.1 % (13.4-35.0) H 05/18/19 08:18 Reactive Lymphs % (Man) 0 % 05/18/19 08:18 Monocytes % (Manual) 37.6 % (0.0-7.3) H 05/18/19 08:18 Eosinophils % (Manual) 4.7 % (0.0-4.3) H 05/18/19 08:18 Basophils % (Manual) 1.2 % (0.0-1.8) 05/18/19 08:18 Metamyelocytes % 0 % 05/18/19 08:18 Myelocytes % 0 % 05/18/19 08:18 Promyelocytes % 0 % 05/18/19 08:18 Blast Cells % 0 % 05/18/19 08:18 Nucleated RBC % Not Reportable 05/18/19 08:18 Seg Neutrophils # 0.0 K/mm3 (1.8-7.7) L 05/17/19 13:51 Seg Neutrophils # Man 0.0 K/mm3 (1.8-7.7) L 05/18/19 08:18 Band Neutrophils # 0.0 K/mm3 05/18/19 08:18 Lymphocytes # (Manual) 0.3 K/mm3 (1.2-5.4) L 05/18/19 08:18 Abs React Lymphs (Man) 0.0 K/mm3 05/18/19 08:18 Monocytes # (Manual) 0.2 K/mm3 (0.0-0.8) 05/18/19 08:18 Eosinophils # (Manual) 0.0 K/mm3 (0.0-0.4) 05/18/19 08:18 Basophils # (Manual) 0.0 K/mm3 (0.0-0.1) 05/18/19 08:18 Metamyelocytes # 0.0 K/mm3 05/18/19 08:18 Myelocytes # 0.0 K/mm3 05/18/19 08:18 Promyelocytes # 0.0 K/mm3 05/18/19 08:18 Blast Cells # 0.0 K/mm3 05/18/19 08:18 WBC Morphology Not Reportable 05/18/19 08:18 Hypersegmented Neuts Not Reportable 05/18/19 08:18 Hyposegmented Neuts Not Reportable 05/18/19 08:18 Hypogranular Neuts Not Reportable 05/18/19 08:18 Smudge Cells Not Reportable 05/18/19 08:18 Toxic Granulation Not Reportable 05/18/19 08:18 Toxic Vacuolation Not Reportable 05/18/19 08:18 Dohle Bodies Not Reportable 05/18/19 08:18 Pelger-Huet Anomaly Not Reportable 05/18/19 08:18 Alfonzo Rods Not Reportable 05/18/19 08:18 Platelet Estimate Consistent w auto 05/18/19 08:18 Clumped Platelets Not Reportable 05/18/19 08:18 Plt Clumps, EDTA Not Reportable 05/18/19 08:18 Large Platelets Not Reportable 05/18/19 08:18 Giant Platelets Rare 05/18/19 08:18 Platelet Satelliting Not Reportable 05/18/19 08:18 Plt Morphology Comment Not Reportable 05/18/19 08:18 RBC Morphology Not Reportable 05/18/19 08:18 Dimorphic RBCs Not Reportable 05/18/19 08:18 Polychromasia Not Reportable 05/18/19 08:18 Hypochromasia Not Reportable 05/18/19 08:18 Poikilocytosis Few 05/18/19 08:18 Anisocytosis Few 05/18/19 08:18 Microcytosis Not Reportable 05/18/19 08:18 Macrocytosis Not Reportable 05/18/19 08:18 Spherocytes Not Reportable 05/18/19 08:18 Pappenheimer Bodies Not Reportable 05/18/19 08:18 Sickle Cells Not Reportable 05/18/19 08:18 Target Cells Not Reportable 05/18/19 08:18 Tear Drop Cells Not Reportable 05/18/19 08:18 Ovalocytes Not Reportable 05/18/19 08:18 Helmet Cells Not Reportable 05/18/19 08:18 [place] Bodies Not Reportable 05/18/19 08:18 [place] Rings Not Reportable 05/18/19 08:18 [place] Cells Not Reportable 05/18/19 08:18 Bite Cells Not Reportable 05/18/19 08:18 Crenated Cell Not Reportable 05/18/19 08:18 Elliptocytes Not Reportable 05/18/19 08:18 Acanthocytes (Spur) Not Reportable 05/18/19 08:18 Rouleaux Not Reportable 05/18/19 08:18 Hemoglobin C Crystals Not Reportable 05/18/19 08:18 Schistocytes Not Reportable 05/18/19 08:18 Malaria parasites Not Reportable 05/18/19 08:18 Gene Bodies Not Reportable 05/18/19 08:18 Hem Pathologist Commnt No 05/18/19 08:18 Sodium 139 mmol/L (137-145) 05/18/19 08:18 Potassium 3.1 mmol/L (3.6-5.0) L 05/18/19 08:18 Chloride 107.4 mmol/L (98-107) H 05/18/19 08:18 Carbon Dioxide 19 mmol/L (22-30) L 05/18/19 08:18 Anion Gap 16 mmol/L 05/18/19 08:18 BUN 9 mg/dL (7-17) 05/18/19 08:18 Creatinine 0.6 mg/dL (0.7-1.2) L 05/18/19 08:18 Estimated GFR > 60 ml/min 05/18/19 08:18 BUN/Creatinine Ratio 15 % 10/22/19 08:18 Glucose 97 mg/dL (65-100) 05/18/19 08:18 Lactic Acid 0.80 mmol/L (0.7-2.0) 05/17/19 21:37 Calcium 7.0 mg/dL (8.4-10.2) L 05/18/19 08:18 Magnesium 1.90 mg/dL (1.7-2.3) 05/17/19 15:29 Total Bilirubin 0.50 mg/dL (0.1-1.2) 05/17/19 13:51 AST 31 units/L (5-40) 05/17/19 13:51 ALT 17 units/L (7-56) 05/17/19 13:51 Alkaline Phosphatase 67 units/L (35-129) 05/17/19 13:51 Total Creatine Kinase 73 units/L (30-135) 05/17/19 15:29 Total Protein 6.9 g/dL (6.3-8.2) 05/17/19 13:51 Albumin 3.9 g/dL (3.9-5) 05/17/19 13:51 Albumin/Globulin Ratio 1.3 % 05/17/19 13:51 Urine Color Yellow (Yellow) 05/17/19 20:40 Urine Turbidity Clear (Clear) 05/17/19 20:40 Urine pH 7.0 (5.0-7.0) 05/17/19 20:40 Ur Specific [place] 1.014 (1.003-1.030) 05/17/19 20:40 Urine Protein <15 mg/dl mg/dL (Negative) 05/17/19 20:40 Urine Glucose (UA) Neg mg/dL (Negative) 05/17/19 20:40 Urine Ketones Tr mg/dL (Negative) 05/17/19 20:40 Urine Blood Neg (Negative) 05/17/19 20:40 Urine Nitrite Neg (Negative) 05/17/19 20:40 Urine Bilirubin Neg (Negative) 05/17/19 20:40 Urine Urobilinogen < 2.0 mg/dL (<2.0) 05/17/19 20:40 Ur Leukocyte Esterase Neg (Negative) 05/17/19 20:40 Urine WBC (Auto) 2.0 /HPF (0.0-6.0) 05/17/19 20:40 Urine RBC (Auto) 1.0 /HPF (0.0-6.0) 05/17/19 20:40 U Epithel Cells (Auto) 3.0 /HPF (0-13.0) 05/17/19 20:40 Urine Bacteria (Auto) 3+ /HPF (Negative) 05/17/19 20:40 Urine Mucus Few /HPF 05/17/19 20:40 Blood Type O POSITIVE 05/17/19 15:29 Antibody Screen Negative 05/17/19 15:29 Active Medications - Current Medications Current Medications: Generic Name Dose Route Start Last Admin Trade Name Freq PRN Reason Stop Dose Admin Acetaminophen/Hydrocodone Bitart 1 each 05/17/19 15:52 05/18/19 06:09 [place] 5/325 PO 1 each Q6H PRN Administration Pain, Moderate (4-6) Fluticasone Propionate 50 mcg 05/17/19 22:00 05/18/19 10:51 Flonase NS 50 mcg BID HALINA Administration Hydroxyzine HCl 10 mg 05/17/19 15:18 Atarax PO Q6HR PRN Itching Cefepime HCl 2 gm in 100 mls @ 200 mls/hr 05/18/19 16:00 Maxipime/Ns 2 Gm/100 Ml IV Q8HR HALINA Protocol Fluconazole 200 mls @ 100 mls/hr 05/18/19 16:00 Diflucan IV Q24HR HALINA Protocol Lidocaine HCl 15 ml 05/18/19 11:00 05/18/19 14:02 Magic Mouthwash PO 15 ml TID HALINA Administration Miscellaneous Medication 1 each 05/18/19 13:00 05/18/19 14:01 Darunavir/Cob/Emtri/Tenof Alaf [Symtuza [id number] Mg Tab] PO 1 each DAILY HALINA Administration Morphine Sulfate 2 mg 05/18/19 09:57 Morphine IV Q3H PRN Pain, Moderate (4-6) Naproxen 500 mg 05/17/19 15:55 Naprosyn PO Q12H PRN Pain, Mild (1-3) Sodium Chloride 10 ml 05/17/19 22:00 05/18/19 10:53 Sodium Chloride Flush Syringe 10 Ml IV 10 ml BID HALINA Administration Sodium Chloride 10 ml 05/17/19 15:13 Sodium Chloride Flush Syringe 10 Ml IV PRN PRN LINE FLUSH
[2019-05-18] MEDS ORDERED: DIFLUCAN 200 MG/100 ML BAG IV ONE (20:00)
[2019-05-18] MEDS: CEFEPIME/NS 2 GM/100 ML 2 GM/100 ML BAG IV SCH (22:26)
[2019-05-19] MEDS: CEFEPIME/NS 2 GM/100 ML 2 GM/100 ML BAG IV SCH ×3 (05:09→22:05)
[2019-05-19 05:29] LABS: Hematocrit 26.4 % (30.3-42.9); Hemoglobin 8.8 gm/dl (10.1-14.3); Mean Corpuscular HGB Conc 33 % (30-34); Mean Corpuscular Volume 90 fl (79-97); Platelet Count 127 K/mm3 (140-440); Red Blood Count 2.94 M/mm3 (3.65-5.03); Red Cell Distribution Width 16.1 % (13.2-15.2)
[2019-05-19 06:11] LABS: BUN/Creatinine Ratio 13; Blood Urea Nitrogen 9 mg/dL (7-17); Calcium 6.8 mg/dL (8.4-10.2); Hemolysis Index 4
[2019-05-19] MEDS: MAGIC MOUTHWASH PO SCH ×3 (08:15→22:06)
[2019-05-19] MEDS: DIFLUCAN 200 ML IV SCH (09:29)
[2019-05-19] MEDS: FLONASE NS SCH ×2 (09:30→22:05)
[2019-05-19] MEDS: [UNRECOGNIZED DRUG - OTHER] PO SCH (09:31)
[2019-05-19] MEDS: SODIUM CHLORIDE FLUSH SYRINGE 10 ML IV SCH ×2 (09:32→22:05)
[2019-05-19 11:52] LABS: Band Neutrophils # (Manual) 0.2 K/mm3; Basophils % (Manual) 0 % (0.0-1.8); Total Cells Counted 100
[2019-05-19 11:54] LABS: Anisocytosis Few; Dohle Bodies Few; Poikilocytosis Few
[2019-05-19 11:55] LABS: Giant Platelets Rare; Platelet Estimate Consistent w Auto
--- NOTE | 2019-05-19 14:09 | Progress Note ---
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 She also has history of HCV treated with Harvoni in 2017, has hypertension, tobacco abuse, former IVDU quit 21 years ago and recent diagnosis of breast cancer for which she is on chemotherapy, last chemo on 05/11/2019 now with: 1) Febrile neutropenia: likely from chemotherapy. Source of infection unclear. ?mucositis v/s bacteremia v/s UTI (less likely, no urinary symptoms). No pneumonia on CXR. 2) Oropharyngeal candidiasis with mucositis: IV Fluconazole 3) HIV: continue Symtuza. Follows with Dr. Karimi in ID clinic. 4) Thrombocytopenia: likely from recent chemo. Recs: continue empiric Cefepime and Fluconazole If cultures remain negative and if afebrile, will d/c Cefepime and anticipate d/c on PO Fluconazole to complete 2 weeks continue Symtuza (patient's own supply) Yoel Varghese MD, FACP [facility] C: [phone] O: [phone] F: [phone] Subjective Date of service: 05/19/19 Interval history: No fever. Feeling better today. Asking for food. Objective - Exam Narrative Exam: Physical Exam: Constitutional: Alert, cooperative. No acute distress Head, Ears, Nose: Normocephalic, atraumatic. External ears, nose normal Eyes: Conjunctivae/corneas clear. No icterus. No ptosis. Neck: Supple, no meningeal signs Oral: thrush + with mucositis, improving Cardiovascular: S1, S2 normal. Respiratory: Good air entry, clear to auscultation bilaterally GI: Soft, non-tender; bowel sounds normal. No peritoneal signs Musculoskeletal: No pedal edema, no cyanosis. No PORT site tenderness Skin: No rash or abscess Hem/Lymphatic: No palpable cervical or supraclavicular nodes. No lymphangitis Psych: Mood ok. Affect normal Neurological: Awake, alert, oriented. No gross abnormality - Constitutional Vitals: Vital Signs Temp Pulse Resp BP Pulse Ox 98.5 F 116 H 19 123/78 96 05/19/19 12:00 05/19/19 13:00 05/19/19 08:00 05/19/19 13:00 05/19/19 13:00 Temperature -Last 24 Hours Temperature 98.5 F Temperature 98.4 F Temperature 98.1 F Temperature 99.3 F Temperature 99.6 F - Labs CBC & Chem 7: 05/19/19 04:35 05/19/19 04:35 Labs: Abnormal lab results 05/19/19 05/19/19 Range/Units 04:35 04:35 WBC 2.9 L (4.5-11.0) K/mm3 RBC 2.94 L (3.65-5.03) M/mm3 Hgb 8.8 L (10.1-14.3) gm/dl Hct 26.4 L (30.3-42.9) % RDW 16.1 H (13.2-15.2) % Plt Count 127 L (140-440) K/mm3 Lymphocytes % (Manual) 12.0 L (13.4-35.0) % Monocytes % (Manual) 22.0 H (0.0-7.3) % Seg Neutrophils # Man 1.7 L (1.8-7.7) K/mm3 Lymphocytes # (Manual) 0.3 L (1.2-5.4) K/mm3 Potassium 3.0 L (3.6-5.0) mmol/L Chloride 107.4 H (98-107) mmol/L Carbon Dioxide 16 L (22-30) mmol/L Calcium 6.8 L (8.4-10.2) mg/dL
--- NOTE | 2019-05-19 15:10 | Progress Note ---
Assessment and Plan Assessment and plan: (1) Neutropenic fever - Patient is on IV cefepime - No fever after admission - ID saw the patient and a comment to continue the cefepime No source of infection to say sepsis. Neutropenia; chemotherapy induced. WBC is trending up (2) Acidosis - IV fluids (3) HIV (human immunodeficiency virus infection) Continue symthuza. (4) oral candidiasis - Patient is on IV fluconazole - ID increase the dose - Improving (5) DVT prophylaxis SCD to BLE while in bed, Deconditioning - PT consult placed. History Interval history: Patient was seen and a lot of this morning, patient's difficulty of swallowing is getting better. Hospitalist Physical - Physical exam Narrative exam: Not in cardiopulmonary distress. The patient appeared well nourished and normally developed. Vital signs as documented. Head exam is unremarkable. Oral trush No scleral icterus . Neck is without jugular venous distension, thyromegaly, or carotid bruits. Lungs are clear to auscultation. Cardiac exam reveals regular rate and Rhythm. First and second heart sounds normal. No murmurs, rubs or gallops. Abdominal exam reveals normal bowel sounds, no masses, no organomegaly and no aortic enlargement. Extremities are nonedematous and both femoral and pedal pulses are normal. GREASE MAKER HEAD: Alert and oriented 3. No focal weakness. - Constitutional Vitals: Temp Pulse Resp BP Pulse Ox 98.5 F 112 H 19 123/69 96 05/19/19 12:00 05/19/19 14:00 05/19/19 08:00 05/19/19 14:00 05/19/19 14:00 General appearance: Present: mild distress, obese Results - Labs CBC & Chem 7: 05/19/19 04:35 05/19/19 04:35 Labs: Laboratory Last Values WBC 2.9 K/mm3 (4.5-11.0) L 05/19/19 04:35 RBC 2.94 M/mm3 (3.65-5.03) L 05/19/19 04:35 Hgb 8.8 gm/dl (10.1-14.3) L 05/19/19 04:35 Hct 26.4 % (30.3-42.9) L 05/19/19 04:35 MCV 90 fl (79-97) 05/19/19 04:35 MCH 30 pg (28-32) 05/19/19 04:35 MCHC 33 % (30-34) 05/19/19 04:35 RDW 16.1 % (13.2-15.2) H 05/19/19 04:35 Plt Count 127 K/mm3 (140-440) L 05/19/19 04:35 Lymph % (Auto) Lead Injection Mold Technician 05/17/19 13:51 Nash % (Auto) Lead Injection Mold Technician 05/19/19 04:35 Nash # 0.1 K/mm3 (0.0-0.8) 05/17/19 13:51 Eos # 0.1 K/mm3 (0.0-0.4) 05/17/19 13:51 Baso # 0.0 K/mm3 (0.0-0.1) 05/17/19 13:51 Add Manual Diff Complete 05/19/19 04:35 Total Counted 100 05/19/19 04:35 Seg Neutrophils % Lead Injection Mold Technician 05/17/19 13:51 Seg Neuts % (Manual) 57.0 % (40.0-70.0) 05/19/19 04:35 Band Neutrophils % 6.0 % 05/19/19 04:35 Lymphocytes % (Manual) 12.0 % (13.4-35.0) L 05/19/19 04:35 Reactive Lymphs % (Man) 0 % 05/19/19 04:35 Monocytes % (Manual) 22.0 % (0.0-7.3) H 05/19/19 04:35 Eosinophils % (Manual) 2.0 % (0.0-4.3) 05/19/19 04:35 Basophils % (Manual) 0 % (0.0-1.8) 05/19/19 04:35 Metamyelocytes % 1.0 % 05/19/19 04:35 Myelocytes % 0 % 05/19/19 04:35 Promyelocytes % 0 % 05/19/19 04:35 Blast Cells % 0 % 05/19/19 04:35 Nucleated RBC % Not Reportable 05/19/19 04:35 Seg Neutrophils # 0.0 K/mm3 (1.8-7.7) L 05/17/19 13:51 Seg Neutrophils # Man 1.7 K/mm3 (1.8-7.7) L 05/19/19 04:35 Band Neutrophils # 0.2 K/mm3 05/19/19 04:35 Lymphocytes # (Manual) 0.3 K/mm3 (1.2-5.4) L 05/19/19 04:35 Abs React Lymphs (Man) 0.0 K/mm3 05/19/19 04:35 Monocytes # (Manual) 0.6 K/mm3 (0.0-0.8) 05/19/19 04:35 Eosinophils # (Manual) 0.1 K/mm3 (0.0-0.4) 05/19/19 04:35 Basophils # (Manual) 0.0 K/mm3 (0.0-0.1) 05/19/19 04:35 Metamyelocytes # 0.0 K/mm3 05/19/19 04:35 Myelocytes # 0.0 K/mm3 05/19/19 04:35 Promyelocytes # 0.0 K/mm3 05/19/19 04:35 Blast Cells # 0.0 K/mm3 05/19/19 04:35 WBC Morphology Not Reportable 05/19/19 04:35 Hypersegmented Neuts Not Reportable 05/19/19 04:35 Hyposegmented Neuts Not Reportable 05/19/19 04:35 Hypogranular Neuts Not Reportable 05/19/19 04:35 Smudge Cells Not Reportable 05/19/19 04:35 Toxic Granulation Not Reportable 05/19/19 04:35 Toxic Vacuolation Not Reportable 05/19/19 04:35 Dohle Bodies Few 05/19/19 04:35 Pelger-Huet Anomaly Not Reportable 05/19/19 04:35 Alfonzo Rods Not Reportable 05/19/19 04:35 Platelet Estimate Consistent w auto 05/19/19 04:35 Clumped Platelets Not Reportable 05/19/19 04:35 Plt Clumps, EDTA Not Reportable 05/19/19 04:35 Large Platelets Not Reportable 05/19/19 04:35 Giant Platelets Rare 05/19/19 04:35 Platelet Satelliting Not Reportable 05/19/19 04:35 Plt Morphology Comment Not Reportable 05/19/19 04:35 RBC Morphology Not Reportable 05/19/19 04:35 Dimorphic RBCs Not Reportable 05/19/19 04:35 Polychromasia Not Reportable 05/19/19 04:35 Hypochromasia Not Reportable 05/19/19 04:35 Poikilocytosis Few 05/19/19 04:35 Anisocytosis Few 05/19/19 04:35 Microcytosis Not Reportable 05/19/19 04:35 Macrocytosis Not Reportable 05/19/19 04:35 Spherocytes Not Reportable 05/19/19 04:35 Pappenheimer Bodies Not Reportable 05/19/19 04:35 Sickle Cells Not Reportable 05/19/19 04:35 Target Cells Not Reportable 05/19/19 04:35 Tear Drop Cells Not Reportable 05/19/19 04:35 Ovalocytes Not Reportable 05/19/19 04:35 Helmet Cells Not Reportable 05/19/19 04:35 [place] Bodies Not Reportable 05/19/19 04:35 [place] Rings Not Reportable 05/19/19 04:35 [place] Cells Not Reportable 05/19/19 04:35 Bite Cells Not Reportable 05/19/19 04:35 Crenated Cell Not Reportable 05/19/19 04:35 Elliptocytes Not Reportable 05/19/19 04:35 Acanthocytes (Spur) Not Reportable 05/19/19 04:35 Rouleaux Not Reportable 05/19/19 04:35 Hemoglobin C Crystals Not Reportable 05/19/19 04:35 Schistocytes Not Reportable 05/19/19 04:35 Malaria parasites Not Reportable 05/19/19 04:35 Gene Bodies Not Reportable 05/19/19 04:35 Hem Pathologist Commnt No 05/19/19 04:35 Sodium 141 mmol/L (137-145) 05/19/19 04:35 Potassium 3.0 mmol/L (3.6-5.0) L 05/19/19 04:35 Chloride 107.4 mmol/L (98-107) H 05/19/19 04:35 Carbon Dioxide 16 mmol/L (22-30) L 05/19/19 04:35 Anion Gap 21 mmol/L 05/19/19 04:35 BUN 9 mg/dL (7-17) 05/19/19 04:35 Creatinine 0.7 mg/dL (0.7-1.2) 05/19/19 04:35 Estimated GFR > 60 ml/min 05/19/19 04:35 BUN/Creatinine Ratio 13 % 05/19/19 04:35 Glucose 75 mg/dL (65-100) 05/19/19 04:35 Lactic Acid 0.80 mmol/L (0.7-2.0) 05/17/19 21:37 Calcium 6.8 mg/dL (8.4-10.2) L 05/19/19 04:35 Magnesium 1.90 mg/dL (1.7-2.3) 05/17/19 15:29 Total Bilirubin 0.50 mg/dL (0.1-1.2) 05/17/19 13:51 AST 31 units/L (5-40) 05/17/19 13:51 ALT 17 units/L (7-56) 05/17/19 13:51 Alkaline Phosphatase 67 units/L (35-129) 05/17/19 13:51 Total Creatine Kinase 73 units/L (30-135) 05/17/19 15:29 Total Protein 6.9 g/dL (6.3-8.2) 05/17/19 13:51 Albumin 3.9 g/dL (3.9-5) 05/17/19 13:51 Albumin/Globulin Ratio 1.3 % 05/17/19 13:51 Urine Color Yellow (Yellow) 05/17/19 20:40 Urine Turbidity Clear (Clear) 05/17/19 20:40 Urine pH 7.0 (5.0-7.0) 05/17/19 20:40 Ur Specific [place] 1.014 (1.003-1.030) 05/17/19 20:40 Urine Protein <15 mg/dl mg/dL (Negative) 05/17/19 20:40 Urine Glucose (UA) Neg mg/dL (Negative) 05/17/19 20:40 Urine Ketones Tr mg/dL (Negative) 05/17/19 20:40 Urine Blood Neg (Negative) 05/17/19 20:40 Urine Nitrite Neg (Negative) 05/17/19 20:40 Urine Bilirubin Neg (Negative) 05/17/19 20:40 Urine Urobilinogen < 2.0 mg/dL (<2.0) 05/17/19 20:40 Ur Leukocyte Esterase Neg (Negative) 05/17/19 20:40 Urine WBC (Auto) 2.0 /HPF (0.0-6.0) 05/17/19 20:40 Urine RBC (Auto) 1.0 /HPF (0.0-6.0) 05/17/19 20:40 U Epithel Cells (Auto) 3.0 /HPF (0-13.0) 05/17/19 20:40 Urine Bacteria (Auto) 3+ /HPF (Negative) 05/17/19 20:40 Urine Mucus Few /HPF 05/17/19 20:40 Blood Type O POSITIVE 05/17/19 15:29 Antibody Screen Negative 05/17/19 15:29 Active Medications - Current Medications Current Medications: Generic Name Dose Route Start Last Admin Trade Name Freq PRN Reason Stop Dose Admin Acetaminophen/Hydrocodone Bitart 1 each 05/17/19 15:52 05/18/19 06:09 Ivor 5/325 PO 1 each Q6H PRN Administration Pain, Moderate (4-6) Fluticasone Propionate 50 mcg 05/17/19 22:00 05/19/19 09:30 Flonase NS 50 mcg BID HALINA Administration Hydroxyzine HCl 10 mg 05/17/19 15:18 Atarax PO Q6HR PRN Itching Cefepime HCl 2 gm in 100 mls @ 200 mls/hr 05/18/19 22:00 05/19/19 13:10 Maxipime/Ns 2 Gm/100 Ml IV 200 mls/hr Q8H HALINA Administration Protocol Fluconazole 200 mls @ 100 mls/hr 05/19/19 10:00 05/19/19 09:29 Diflucan IV 100 mls/hr Q24HR HALINA Administration Protocol Lidocaine HCl 15 ml 05/18/19 11:00 05/19/19 13:10 Magic Mouthwash PO 15 ml TID HALINA Administration Miscellaneous Medication 1 each 05/18/19 13:00 05/19/19 09:31 Darunavir/Cob/Emtri/Tenof Alaf [Symtuza [id number] Mg Tab] PO 1 each DAILY HALINA Administration Morphine Sulfate 2 mg 05/18/19 09:57 05/18/19 22:30 Morphine IV 2 mg Q3H PRN Administration Pain, Moderate (4-6) Naproxen 500 mg 05/17/19 15:55 Naprosyn PO Q12H PRN Pain, Mild (1-3) Sodium Chloride 10 ml 05/17/19 22:00 05/19/19 09:32 Sodium Chloride Flush Syringe 10 Ml IV 10 ml BID HALINA Administration Sodium Chloride 10 ml 05/17/19 15:13 Sodium Chloride Flush Syringe 10 Ml IV PRN PRN LINE FLUSH
[2019-05-20 04:45] LABS: Hematocrit 26.6 % (30.3-42.9); Hemoglobin 8.8 gm/dl (10.1-14.3); Mean Corpuscular HGB Conc 33 % (30-34); Mean Corpuscular Volume 89 fl (79-97); Platelet Count 147 K/mm3 (140-440); Red Blood Count 2.97 M/mm3 (3.65-5.03); Red Cell Distribution Width 16.4 % (13.2-15.2)
[2019-05-20 05:04] LABS: BUN/Creatinine Ratio 14; Blood Urea Nitrogen 11 mg/dL (7-17); Calcium 6.9 mg/dL (8.4-10.2); Hemolysis Index 1
[2019-05-20] MEDS: CEFEPIME/NS 2 GM/100 ML 2 GM/100 ML BAG IV SCH (05:12)
[2019-05-20 05:38] LABS: Band Neutrophils # (Manual) 0.6 K/mm3; Basophils % (Manual) 0 % (0.0-1.8); Eosinophils % (Manual) 0 % (0.0-4.3); Total Cells Counted 100
[2019-05-20 05:39] LABS: Platelet Estimate Consistent w Auto
[2019-05-20] MEDS ORDERED: POTASSIUM CHLORIDE FEEDTUBE NR (08:25)
[2019-05-20] MEDS: MAGIC MOUTHWASH PO SCH (10:14)
[2019-05-20] MEDS: DIFLUCAN 200 ML IV SCH (10:14)
[2019-05-20] MEDS: FLONASE NS SCH (10:15)
[2019-05-20] MEDS: [UNRECOGNIZED DRUG - OTHER] PO SCH (10:15)
[2019-05-20] MEDS: SODIUM CHLORIDE FLUSH SYRINGE 10 ML IV SCH (10:16)
--- NOTE | 2019-05-20 11:46 | Progress Note ---
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 She also has history of HCV treated with Harvoni in 2017, has hypertension, tobacco abuse, former IVDU quit 21 years ago and recent diagnosis of breast cancer for which she is on chemotherapy, last chemo on 05/11/2019 now with: 1) Febrile neutropenia: likely from chemotherapy. Source of infection unclear. ?mucositis v/s bacteremia v/s UTI (less likely, no urinary symptoms). No pneumonia on CXR. Blood cultures remained negative. 2) Oropharyngeal candidiasis with mucositis: IV Fluconazole switch to PO on discharge 3) HIV: continue Symtuza. Follows with Dr. Karimi in ID clinic. 4) Thrombocytopenia: likely from recent chemo. Recs: fever and neutropenia both resolved OK for d/c on PO Fluconazole 400 mg daily x 10 days continue Symtuza (patient's own supply) patient will follow up with Dr. Karimi in ID clinic (contact info given) Yoel Varghese MD, FACP [facility], [place], [facility] ([facility]) C: [phone] O: [phone] F: [phone] Subjective Date of service: 05/20/19 Interval history: No fever. continues to feel better. Swallowing has also much improved. Hoping to go home today. Objective - Exam Narrative Exam: Physical Exam: Constitutional: Alert, cooperative. No acute distress Head, Ears, Nose: Normocephalic, atraumatic. External ears, nose normal Eyes: Conjunctivae/corneas clear. No icterus. No ptosis. Neck: Supple, no meningeal signs Oral: thrush + with mucositis, much improved Cardiovascular: S1, S2 normal. Respiratory: Good air entry, clear to auscultation bilaterally GI: Soft, non-tender; bowel sounds normal. No peritoneal signs Musculoskeletal: No pedal edema, no cyanosis. No PORT site tenderness Skin: No rash or abscess Hem/Lymphatic: No palpable cervical or supraclavicular nodes. No lymphangitis Psych: Mood ok. Affect normal Neurological: Awake, alert, oriented. No gross abnormality - Constitutional Vitals: Vital Signs Temp Pulse Resp BP Pulse Ox 98.6 F 110 H 15 126/69 98 05/20/19 08:00 05/20/19 06:01 05/20/19 06:01 05/20/19 06:01 05/20/19 08:19 Temperature -Last 24 Hours Temperature 98.6 F Temperature 98.8 F Temperature 98.8 F Temperature 98.9 F Temperature 99.4 F Temperature 98.5 F Temperature 98.5 F - Labs CBC & Chem 7: 05/20/19 03:55 05/20/19 03:55 Labs: Abnormal lab results 05/19/19 05/20/19 05/20/19 Range/Units 04:35 03:55 03:55 WBC 16.2 H (4.5-11.0) K/mm3 RBC 2.97 L (3.65-5.03) M/mm3 Hgb 8.8 L (10.1-14.3) gm/dl Hct 26.6 L (30.3-42.9) % RDW 16.4 H (13.2-15.2) % Lymphocytes % (Manual) 12.0 L 36.0 H (13.4-35.0) % Monocytes % (Manual) 22.0 H 9.0 H (0.0-7.3) % Seg Neutrophils # Man 1.7 L (1.8-7.7) K/mm3 Lymphocytes # (Manual) 0.3 L 5.8 H (1.2-5.4) K/mm3 Monocytes # (Manual) 1.5 H (0.0-0.8) K/mm3 Potassium 3.1 L (3.6-5.0) mmol/L Chloride 109.7 H (98-107) mmol/L Carbon Dioxide 17 L (22-30) mmol/L Calcium 6.9 L (8.4-10.2) mg/dL
--- NOTE | 2019-05-20 11:57 | Discharge Summary ---
Providers - Providers Date of Admission: 05/17/19 15:13 Date of discharge: 05/20/19 Attending physician: LESLY FRAGOSO MD 05/17/19 15:05 Consult to Physician [CONS] Urgent Comment: Consulting Provider: RAVEN SU Physician Instructions: Reason For Exam: neutropenia 05/17/19 19:33 Speech Therapy Evaluation and Treat [CONS] Routine Reason For Exam: swallow eval 05/19/19 11:05 Physical Therapy Evaluation and Treat [CONS] Routine Comment: Reason For Exam: Weakness Primary care physician: EUFEMIA VALDEZ DO Hospitalization Reason for admission: Neutropenic fever, oral cadidiasis, mucositis Condition: Fair Hospital course: 68 YO Female with HIV, HTN, Obesity, Breast Ca, HCV, CD4 count of 434, Nicotine Dependence presents to ED for evaluation. Pt is lethargic at time of my evaluation but is able to provide history. Pt states that she has experienced generalized weakness, subjective fever, and loss of appetite over the past 3 days with persistent symptoms over the same time frame. Pt states that " I have no energy, and I feel wiped out". Pt seen by her Infectious Disease physician and sent [facility] for further evaluation. Pt seen and evaluated in ED and found to have Sepsis, Neutropenia, Acidosis, and HIV Disease. Pt initiated on neutropenia precautions and admitted to [facility]. QSOFA Score:2 at time of admission. No prior admission for review. All listed medication reconciled at time of admission. Patient was admitted and started treatment for neutropenic fever with IV cefepime, patient's fever resolved. patient had mucositis and oral candidiasis and initially treated with IV Fluconazole when she tolerated changed to PO and given 400mg PO daily to finish 14 day course. ID recommend to DC the antibiotics. Patient will follow with her oncologist for the treatment of her breast cancer. patient was hemodynamically stable at the time of discharge. Continue her HIV meds. Disposition: DC-01 TO HOME OR SELFCARE Time spent for discharge: 34 minutes - Discharge Diagnoses (1) Oral candidiasis Status: Acute (2) Pancytopenia due to chemotherapy Status: Acute (3) Neutropenic fever Status: Acute (4) Mucositis (ulcerative) due to antineoplastic therapy Status: Acute (5) HIV (human immunodeficiency virus infection) Status: Chronic Qualifiers: HIV symptom status: unspecified Qualified Code(s): B20 - Human immunodeficiency virus [HIV] disease Core Measure Documentation - Palliative Care Palliative Care/ Comfort Measures: Not Applicable - Core Measures Any of the following diagnoses?: none Exam - Physical Exam Narrative exam: Not in cardiopulmonary distress. The patient appeared well nourished and normally developed. Vital signs as documented. Head exam is unremarkable. Oral trush No scleral icterus . Neck is without jugular venous distension, thyromegaly, or carotid bruits. Lungs are clear to auscultation. Cardiac exam reveals regular rate and Rhythm. First and second heart sounds normal. No murmurs, rubs or gallops. Abdominal exam reveals normal bowel sounds, no masses, no organomegaly and no aortic enlargement. Extremities are nonedematous and both femoral and pedal pulses are normal. GEOTHERMAL TECHNICIAN: Alert and oriented 3. No focal weakness. - Constitutional Vitals: Temp Pulse Resp BP Pulse Ox 98.6 F 111 H 16 123/88 98 05/20/19 08:00 05/20/19 11:01 05/20/19 11:01 05/20/19 11:01 05/20/19 11:01 Plan Activity: no restrictions Weight Bearing Status: Full Weight Bearing Diet: advance as tolerated Follow up with: EUFEMIA VALDEZ DO [Primary Care Provider] - 7 Days Prescriptions: Fluconazole [Diflucan TAB] 400 mg PO QDAY #20 tablet Fluconazole [Diflucan TAB] 400 mg PO QDAY #20 tablet
[2019-05-20 13:14] VITALS: BP 142/79
== END 2019-05-20 15:34 | disposition home or self-care (01) | DRG 975 ==
LOC: ED 12:44 → IMCU 15:13
PROVIDERS: ADMIT Internal Medicine; ATTEND Internal Medicine
DX: B20 Human immunodeficiency virus [HIV] disease (principal); B37.0 Candidal stomatitis; E87.2 Acidosis; C50.919 Malignant neoplasm of unspecified site of unspecified female breast; D69.6 Thrombocytopenia, unspecified; R50.81 Fever presenting with conditions classified elsewhere; K12.31 Oral mucositis (ulcerative) due to antineoplastic therapy; T45.1X5A Adverse effect of antineoplastic and immunosuppressive drugs, initial encounter; I10 Essential (primary) hypertension; F17.200 Nicotine dependence, unspecified, uncomplicated; E66.9 Obesity, unspecified; F41.9 Anxiety disorder, unspecified; B19.20 Unspecified viral hepatitis C without hepatic coma; Y92.89 Other specified places as the place of occurrence of the external cause; Z90.49 Acquired absence of other specified parts of digestive tract; Z91.041 Radiographic dye allergy status; Z79.899 Other long term (current) drug therapy; Z68.31 Body mass index [BMI] 31.0-31.9, adult
CPT/HCPCS: 36415; 70450; 71045; 80048; 80053; 81001; 82140; 82550; 83735; 85007; 85025; 86850; 86900; 86901; 87040; 87086; 93005; 93010; 96374; G0378; J0692; J1450; J2270; J3246; J7030

== ENCOUNTER 2019-07-07 14:22 | Outpatient (CLI) | payer MEDICARE ==
--- NOTE | 2019-07-08 13:11 | Ultrasound Report ---
COMPLETE BILATERAL BREAST ULTRASOUND HISTORY: Bilateral breast cancer status post chemotherapy. COMPARISON: 03/03/2019 FINDINGS: Complete sonographic evaluation of the right breast including imaging of the four quadrant s and subareolar areas was performed. A poorly marginated less well-defined irregular heterogeneous s olid hypoechoic mass at 9:00 4 cm from the nipple measures 3.6 x 2.0 x 2.9 cm. No other mass. Ultraso und of the right axilla demonstrated no suspicious lymph nodes. Complete sonographic evaluation of the left breast including imaging of the four quadrants and subare olar areas was performed. No mass or suspicious shadowing is identified. The radius is identified mas s at 1:00 5 cm from the nipple is no longer identified and there is a hydromark clip at the site of t he previous mass. Ultrasound of the left axilla demonstrated a 1.7 x 0.7 cm lymph node with a biopsy clip. IMPRESSION: 1. A partial response to chemotherapy by ultrasound with a persistent but smaller and less well-defin ed mass of the right breast at 9:00 4 cm from the nipple. 2. A complete response to chemotherapy by ultrasound with no identifiable left mass. BIRADS 6: Known biopsy proven malignancy. Signer Name: Patrick Aguirre MD Signed: 07/08/2019 1:07 PM Workstation Name: [id number]
--- NOTE | 2019-07-08 14:16 | Magnetic Resonance Report ---
BILATERAL BREAST MR WITHOUT AND WITH GADOLINIUM INDICATION: Bilateral breast cancer for follow-up after chemotherapy. COMPARISONS: 07/07/2019 bilateral breast ultrasound. No comparison MRIs are available. She had a pre vious MRI at an outside facility. TECHNIQUE: Axial 1.0 mm T1 without, axial high-resolution 2.0 mm T2 and axial 1.0 mm dynamic vibrant high-resolution postcontrast T1 fat saturation sequences on a 1.5 Emily magnet. The examination was p erformed with an 8-channel dedicated [place] breast coil. Post-processing with CAD and subtraction was performed on an [employer] workstation. 15.0 cc of MultiHance was injected without incident for the c ontrast portion of the exam. Consent was obtained prior to the administration of the contrast. FINDINGS: RIGHT BREAST: Minimal background parenchymal enhancement. A nonenhancing irregular lower outer mass c orresponds to the known cancer and measures 4.7 x 2.2 x 2.5 cm. The mass extends to the skin and cont ains a biopsy clip.. No suspicious lymph nodes. LEFT BREAST: Minimal background parenchymal enhancement. No mass or suspicious enhancement. No suspic ious lymph nodes. IMPRESSION: 1. A persistent but nonenhancing 4.7 cm right breast mass which corresponds to the known cancer. The lack of enhancement suggests a good response to chemotherapy. 2. Negative left breast with no mass or suspicious enhancement. This suggests a good response to chem otherapy. BI-RADS Category 6: Known Cancer Signer Name: Patrick Aguirre MD Signed: 07/08/2019 2:12 PM Workstation Name: [id number]
== END 2019-07-07 14:23 | disposition home or self-care (01) ==
LOC: SPVWC 14:22
PROVIDERS: ATTEND Surgery
DX: C50.919 Malignant neoplasm of unspecified site of unspecified female breast (principal); I10 Essential (primary) hypertension
CPT/HCPCS: 76641; A9577; C8908; 77049

== ENCOUNTER 2019-07-19 10:08 | Observation (INO) | payer MEDICARE ==
[~2019-07-19 10:08] MED LIST: ceFAZolin/Water 2 GM/20 ML 2 GM/20 ML SYRINGE IV NR
[2019-07-19] MEDS ORDERED: HYDROmorphone 1 MG/1 ML INJ IV PRN (11:08)
[2019-07-19] MEDS ORDERED: ONDANSETRON 4 MG/2 ML INJ IV PRN ×2 (11:08→20:20)
[2019-07-19] MEDS ORDERED: fentaNYL 100 MCG/2 ML INJ IV NR (11:08)
[2019-07-19] MEDS ORDERED: MAGNESIUM OXIDE 400 MG TAB PO NR (11:09)
[2019-07-19] MEDS ORDERED: ACETAMINOPHEN 325 MG TAB PO NR (11:09)
--- NOTE | 2019-07-19 11:15 | Anesthesia Day of Surgery ---
Anesthesia Day of Surgery - Day of Surgery Patient Examined: Yes Patient H&P Reviewed: Yes Patient is NPO: Yes Beta Blockers: Yes
--- NOTE | 2019-07-19 11:19 | Anesthesia Consultation ---
Anesthesia Consult and Med Hx Date of service: 07/19/19 - Airway Anesthetic Teeth Evaluation: Chipped ROM Head & Neck: Adequate Mental/Hyoid Distance: Adequate Mallampati Class: Class II Intubation Access Assessment: Probably Good - Pre-Operative Health Status ASA Pre-Surgery Classification: ASA3 Proposed Anesthetic Plan: General Nerve Block: PEC - Pulmonary Hx Smoking: Yes (1 PPD X 40 YRS) Hx Asthma: No COPD: No Hx Sleep Apnea: No (MIGUEL PRE SCREEN LOW RISK) - Cardiovascular System Hx Hypertension: Yes (X 5 YRS. Limited activity because of leg pain) Hx Heart Attack/AMI: No Hx Pacemaker: No Hx Internal Defibrillator: No - Central Nervous System Hx Seizures: No Hx Back Pain: Yes (SCIATIC PAIN) - Endocrine Hx Renal Disease: Yes (TYSON-resolved now) Hx Liver Disease: Yes (HEP C) - Hematic Hx Anemia: Yes Hx Sickle Cell Disease: No - Other Systems Hx Substance Use: Yes (FORMER HEROINE USER-STOPPED X 21 YRS) Hx Cancer: Yes - Additional Comments Anesthesia Medical History Comments: Had edema in legs believed to be from IVF. HIV+
[2019-07-19] MEDS ORDERED: CELECOXIB 200 MG CAP PO NR (12:00)
[2019-07-19] MEDS ORDERED: LACTATED RINGERS 1,000 ML IV SCH ×2 (12:00→21:00)
[2019-07-19] MEDS ORDERED: MIDAZOLAM 2 MG/2 ML INJ IV NR (12:00)
[2019-07-19] MEDS ORDERED: GABAPENTIN 300 MG CAP PO NR (12:00)
[2019-07-19] MEDS ORDERED: fentaNYL 100 MCG/2 ML INJ ONE ×2 (12:54→17:58)
[2019-07-19] MEDS ORDERED: ROCURONIUM 50 MG/5 ML INJ IV ONE (12:54)
[2019-07-19] MEDS ORDERED: LIDOCAINE MPF (2%) 20 MG/1 ML VIAL 5 ML ONE (12:54)
[2019-07-19] MEDS ORDERED: PROPOFOL 200 MG/20 ML VIAL IV ONE (12:55)
[2019-07-19 13:04] LABS: Basophils % (Auto) 0.8 % (0.0-1.8); Eosinophils # (Auto) 0.2 K/mm3 (0.0-0.4); Eosinophils % (Auto) 7.3 % (0.0-4.3); Hematocrit 27.5 % (30.3-42.9); Hemoglobin 9.1 gm/dl (10.1-14.3); Lymphocytes # (Auto) 1.2 K/mm3 (1.2-5.4); Mean Corpuscular HGB Conc 33 % (30-34); Mean Corpuscular Volume 95 fl (79-97); Monocytes # (Auto) 0.4 K/mm3 (0.0-0.8); Monocytes % (Auto) 13.2 % (0.0-7.3); Platelet Count 206 K/mm3 (140-440); Red Cell Distribution Width 17.4 % (13.2-15.2)
[2019-07-19] MEDS ORDERED: BUPIVACAINE-EPINEPHRINE/PF 0.25%-1:200,000 (30 ML) VIAL INFILTRATI ONE (13:05)
[2019-07-19] MEDS ORDERED: SODIUM CHLORIDE P/F VIAL 10 ML 10 ML ONE (13:39)
[2019-07-19] MEDS ORDERED: METHYLENE BLUE 50 MG/10 ML AMP ONE (13:40)
[2019-07-19] MEDS ORDERED: SODIUM CHLORIDE 0.9% P/F 10 ML VIAL INFILTRATI ONE (15:13)
[2019-07-19] MEDS ORDERED: METHYLENE BLUE 50 MG/10 ML AMP INTRA-URET ONE (15:15)
[2019-07-19] MEDS ORDERED: PHENYLEPHRINE/NS 1,000 MCG/10 ML SYRINGE (OR USE) IV ONE ×2 (16:18→18:42)
[2019-07-19] MEDS ORDERED: LACTATED RINGERS 1,000 ML ONE ×2 (16:43→18:34)
[2019-07-19] MEDS ORDERED: HYDROmorphone 1 MG/1 ML INJ ONE (18:59)
[2019-07-19] MEDS ORDERED: PHENYLEPHRINE 10 MG/1 ML INJ SDV ONE (19:45)
--- NOTE | 2019-07-19 20:19 | Short Stay Summary ---
Short Stay Documentation Date of service: 07/19/19 - History H&P: obtained from office - Allergies and Medications Current Medications: Allergies Iodinated Contrast Media [Iodinated Contrast- Oral and IV Dye] Allergy (Verified 03/22/19 16:31) Swelling , ITCHING TEGADERM DRESSING Adverse Reaction (Uncoded 03/22/19 16:31) BLISTERS , ITCHING Home Medications Medication Instructions Recorded Confirmed Last Taken Type Darunavir/Cob/Emtri/Tenof Alaf 1 each PO DAILY 03/22/19 07/19/19 07/18/19 09:00 History [Symtuza [id number] mg Tab] Fluticasone [Flonase] 1 spray NS BID 03/22/19 07/19/19 07/18/19 17:00 History Losartan/Hydrochlorothiazide 1 each PO DAILY 03/22/19 07/19/19 07/18/19 09:00 History [Losartan-Hctz 100-25 mg Tab] hydrOXYzine HCL [Atarax] 10 mg PO Q6HR PRN 03/22/19 07/14/19 05/16/19 History Metoprolol [Lopressor] 25 mg PO DAILY 07/14/19 07/19/19 07/19/19 11:25 History Active Medications Hydromorphone HCl (Dilaudid) 0.5 mg IV Q10MIN PRN PRN Reason: Pain , Severe (7-10) Stop: 07/19/19 22:00 Cefazolin Sodium (Ancef/Sterile Water 2 Gm/20 Ml) 2 gm in 20 mls @ 80 mls/hr IV PREOP NR; Protocol Stop: 07/19/19 23:02 Lactated Ringer's (Lactated Ringers) 1,000 mls @ 125 mls/hr IV DIRECT HALINA Last Admin: 07/19/19 12:10 Dose: 125 mls/hr Documented by: Midazolam HCl (Versed) 2 mg IV PREOP NR Stop: 07/19/19 23:59 Last Admin: 07/19/19 13:11 Dose: 2 mg Documented by: Ondansetron HCl (Zofran) 4 mg IV ONCE PRN PRN Reason: Nausea And Vomiting - Brief post op/procedure progress note Date of procedure: 07/19/19 Pre-op diagnosis: Bilateral breast cancer Post-op diagnosis: same Procedure: Bilateral mastectomy with bilateral SLNB Anesthesia: GETA Findings: Bilateral SLNs negative for malignancy, bilateral breast clips present Surgeon: MARNIE HOGUE Home Furnishings Sales Representative: ADILENE MOHAMUD Pathology: list (kiko mastectomy; kiko SLNs) Specimen disposition: to lab Condition: stable - Disposition Condition at discharge: Good Disposition: DC/TX-02 SHRT-TRM GEN HOSP IP Short Stay Discharge Plan Activity: other (no heavy lifting) Diet: regular Wound: keep clean and dry Follow up with: EUFEMIA VALDEZ DO [Primary Care Provider] - 7 Days MARNIE HOGUE MD [Staff Physician] - 7 Days
[2019-07-19] MEDS ORDERED: METOCLOPRAMIDE 10 MG TAB PO PRN (20:20)
[2019-07-19] MEDS ORDERED: diphenhydrAMINE 25 MG CAP PO PRN (20:20)
[2019-07-19] MEDS ORDERED: ACETAMINOPHEN 325 MG TAB PO PRN (20:20)
[2019-07-19] MEDS ORDERED: MORPHINE 2 MG/1 ML INJ IV PRN (20:24)
[2019-07-19] MEDS ORDERED: ceFAZolin/Water 2 GM/20 ML 2 GM/20 ML SYRINGE IV ONE (21:15)
--- NOTE | 2019-07-19 21:28 | Operative Report ---
Operative Report Operative Report: Date of Service: July 19, 2019 Preoperative diagnosis: Multicentric right breast cancer of the upper outer quadrant Postoperative diagnosis: Same Procedure: Right Total Mastectomy with Crockett Lymph Node Biopsy, Left total Mastectomy with Crockett Lymph Node Biopsy Surgeon: Odessa Zamudio M.D. Preassembler [employer]: [place] French M.D. Anesthesia: General Findings: Bilateral breast clips present within both total mastectomies. 4 blue sentinel lymph nodes on the right and 10 hot and blue lymph nodes identified and negative for malignancy on frozen section of pathology Complications: None Drains: 19 Serbian KARTIK x 2 Estimated blood loss: 75 cc Disposition: PACU in good condition Indications for operative procedure: This is a 68-year-old lady with bilateral breast cancer. Right breast multicentric Infiltrating Ductal Carcinoma, grade 2, ER/OH positive, HER2 negative, [id number]; Left breast Invasive Lobular carcinoma, grade 2, ER/OH positive, HER2 negative, [id number]. Patient completed 4 cycles of TC/Onpro chemotherapy (20% dose reduction). She underwent post chemotherapy imaging which showed partial response of the right breast, and complete response of the left breast. She wished to proceed with bilateral mastectomy. Patient did not wish to undergo immediate reconstruction at this time. Procedure in detail: Anesthesia placed bilateral pectoral muscle block prior to going to the operating room. The patient was taken to the operating room and was placed supine on the operating table. General anesthesia was administered. Bilateral nipples were injected with radioisotope and 1 cc of methylene blue. Bilateral breast and axilla were prepped and draped in the normal sterile operative fashion. Timeout was performed. Both breasts and axilla were attended to in a similar fashion. Attention was first paid to the left breast. Typical mastectomy incision marking was made with incision encompassing known areas of cancer. Gamma probe scanned the axilla with area of hotspot identified. A skin incision was made with a 10 blade knife and dissection taken down to the subcutaneous tissues. First began raising of the superior flap to the level of the clavicle superiorly and posteriorly to the pectoralis muscle. Followed by raising of the medial flap to the level of the sternum and posteriorly to the pectoralis muscle. Followed by raising of the lateral flap to the level of the latissimus dorsi muscle and taken down posteriorly. The axillary fascia in the axilla was opened and the gamma probed was inserted into the axilla, 7 sentinel lymph nodes specimen (total of 10) were identified with the gamma probe and nodes noted for blue dye. SLNs were dissected free and sent to pathology. All remaining counts were less than 10% of highest count. Lymph nodes were sent to pathology with findings negative for malignancy noted on frozen section. Then proceeded with raising of the inferior flap to the level of the inframammary fold taken posterior to the pectoralis muscle. The mastectomy/breast was removed from the pectoralis muscle without incident. The specimen was appropriately marked and sent to radiology with clips present and then sent to pathology.The chest wall was irrigated and suctioned. Hemostasis was obtained. One 19 Serbian KARTIK drain was placed. The subcutaneous tissues were closed using an interrupted 3-0 Vicryl followed by closing of the skin using a running 4-0 Monocryl and dermabond. On the right side 4 sentinel lymph nodes were identified and noted blue from dye. These were sent to pathology with findings negative for malignancy on frozen section. Patient tolerated surgery very well and was awakened from anesthesia without any complications and then transported to PACU in good condition.
--- NOTE | 2019-07-19 22:36 | Post Anesthesia Evaluation ---
- Post Anesthesia Evaluation Patient Participated: Yes Airway Patent: Yes Stable Respiratory Function: Yes Nausea/Vomiting: No Temp > 96.8F: Yes Pain Manageable: Yes Adequeate Hydration: Yes Anesthesia Complications: No Block Receding Appropriately: Yes Patient on Ventilator: No
[2019-07-19] MEDS: FLUTICASONE PROPIONATE NASAL SPRAY 16 GM NS SCH (23:05)
[2019-07-19] MEDS: DOCUSATE SODIUM 100 MG CAP PO SCH (23:15)
[2019-07-20] MEDS: oxyCODONE /ACETAMINOPHEN 5-325MG TAB PO PRN ×2 (04:34→11:00)
[2019-07-20] MEDS ORDERED: hydrOXYzine HCL 10 MG TAB PO PRN (07:33)
[2019-07-20 08:18] LABS: Basophils % (Auto) 0.7 % (0.0-1.8); Eosinophils # (Auto) 0.1 K/mm3 (0.0-0.4); Eosinophils % (Auto) 2.5 % (0.0-4.3); Hematocrit 24.2 % (30.3-42.9); Hemoglobin 7.9 gm/dl (10.1-14.3); Lymphocytes # (Auto) 0.9 K/mm3 (1.2-5.4); Lymphocytes % (Auto) 20.4 % (13.4-35.0); Mean Corpuscular HGB Conc 33 % (30-34); Mean Corpuscular Volume 96 fl (79-97); Monocytes # (Auto) 0.4 K/mm3 (0.0-0.8); Monocytes % (Auto) 8.1 % (0.0-7.3); Platelet Count 190 K/mm3 (140-440); Red Blood Count 2.54 M/mm3 (3.65-5.03); Red Cell Distribution Width 17.5 % (13.2-15.2)
--- NOTE | 2019-07-20 08:20 | XRay Report ---
SPECIMEN RADIOGRAPH RIGHT BREAST INDICATION: R Breast Ca. COMPARISON: 03/01/2019 mammogram FINDINGS: A group of pleomorphic calcifications as well as 2 biopsy clips are identified within the whole breas t specimen. IMPRESSION: 1. Excision of the known cancer.. Signer Name: Patrick Aguirre MD Signed: 07/20/2019 8:15 AM Workstation Name: [id number]
--- NOTE | 2019-07-20 08:21 | XRay Report ---
SPECIMEN RADIOGRAPH LEFT BREAST INDICATION: LEFT BREAST CANCER. COMPARISON: 03/01/2019 FINDINGS: 2 biopsy clips and a few scattered calcifications are identified within the whole breast specimen. IMPRESSION: 1. Excision of the known cancer.. Signer Name: Patrick Aguirre MD Signed: 07/20/2019 8:17 AM Workstation Name: [id number]
[2019-07-20 08:30] LABS: BUN/Creatinine Ratio 17; Blood Urea Nitrogen 12 mg/dL (7-17); Calcium 7.7 mg/dL (8.4-10.2); Hemolysis Index 2
[2019-07-20] MEDS: DOCUSATE SODIUM 100 MG CAP PO SCH (09:19)
--- NOTE | 2019-07-20 09:45 | Progress Note ---
Assessment and Plan 75 year old lady with bilateral breast cancer. Multicentric Invasive Ductal Carcinoma on the right and Invasive Lobular Carcinoma on the left, s/p bilateral mastectomies with SLNB bilaterally, POD #1. 1) Patient to void on her own (states she usually voids at home after taking her lasix) 2) KARTIK drain teaching by nursing staff 3) Discharge planning for today 3) Follow-up [facility] Subjective Date of service: 07/20/19 Principal diagnosis: Bilateral Breast Cancer Interval history: 75 year old lady with bilateral breast cancer s/p bilateral total mastectomy with bilateral sentinel lymph node biopsy, POD #1. Patient seen and examined at bedside this morning in good spirits, no acute distress. States she is ready to go home. Patient did not void on her own overnight. Straight cath output this morning was 600 ml. Patient to void first prior to discharge. Objective - Constitutional Vitals: Vital Signs - 12hr 07/19/19 07/20/19 07/20/19 23:10 03:43 04:34 Temperature 98.3 F Pulse Rate 86 Respiratory 20 18 20 Rate Blood Pressure 144/69 Blood Pressure [Left] O2 Sat by Pulse 99 Oximetry 07/20/19 07:23 Temperature 98.3 F Pulse Rate 78 Respiratory 20 Rate Blood Pressure Blood Pressure 100/59 [Left] O2 Sat by Pulse 98 Oximetry General appearance: Present: no acute distress - EENT Eyes: PERRL, EOM intact ENT: hearing intact, clear oral mucosa - Neck Neck: supple, normal ROM - Respiratory Respiratory effort: normal - Breasts Breasts: other (Mastectomy incisions clean, dry and intact, no erythema, no discharge, no signs of ischemia) - Cardiovascular Rhythm: regular Extremities: no ischemia Extremity abnormal: edema - Gastrointestinal General gastrointestinal: Present: soft, non-tender Rectal Exam: deferred - Genitourinary Female genitourinary: deferred - Integumentary Integumentary: warm, dry - Musculoskeletal Musculoskeletal: strength equal bilaterally - Neurologic Neurologic: moves all extremities - Psychiatric Psychiatric: appropriate mood/affect, intact judgment & insight, memory intact - Labs CBC & Chem 7: 07/20/19 07:42 07/20/19 07:42 Labs: Abnormal lab results 07/19/19 07/20/19 07/20/19 Range/Units 12:54 07:42 07:42 WBC 3.2 L (4.5-11.0) K/mm3 RBC 2.90 L 2.54 L (3.65-5.03) M/mm3 Hgb 9.1 L 7.9 L (10.1-14.3) gm/dl Hct 27.5 L 24.2 L (30.3-42.9) % RDW 17.4 H 17.5 H (13.2-15.2) % Lymph % (Auto) 36.0 H (13.4-35.0) % Jenkins % (Auto) 13.2 H 8.1 H (0.0-7.3) % Eos % (Auto) 7.3 H (0.0-4.3) % Lymph # 0.9 L (1.2-5.4) K/mm3 Seg Neutrophils # 1.4 L (1.8-7.7) K/mm3 Chloride 107.8 H (98-107) mmol/L Calcium 7.7 L (8.4-10.2) mg/dL Medications & Allergies - Medications Allergies/Adverse Reactions: Allergies Iodinated Contrast Media [Iodinated Contrast- Oral and IV Dye] Allergy (Verified 03/22/19 16:31) Swelling , ITCHING TEGADERM DRESSING Adverse Reaction (Uncoded 03/22/19 16:31) BLISTERS , ITCHING Home Medications: Home Medications Medication Instructions Recorded Confirmed Last Taken Type Darunavir/Cob/Emtri/Tenof Alaf 1 each PO DAILY 03/22/19 07/19/19 07/18/19 09:00 History [Symtuza 075-435-477-10 mg Tab] Fluticasone [Flonase] 1 spray NS BID 03/22/19 07/19/19 07/18/19 17:00 History Losartan/Hydrochlorothiazide 1 each PO DAILY 03/22/19 07/19/19 07/18/19 09:00 History [Losartan-Hctz 100-25 mg Tab] hydrOXYzine HCL [Atarax] 10 mg PO Q6HR PRN 03/22/19 07/14/19 05/16/19 History Metoprolol [Lopressor] 25 mg PO DAILY 07/14/19 07/19/19 07/19/19 11:25 History oxyCODONE /ACETAMINOPHEN [Percocet 1 tab PO Q6HR PRN #15 tablet 07/20/19 Unknown Rx 5/325] Active Medications: Generic Name Dose Route Start Last Admin Trade Name Freq PRN Reason Stop Dose Admin Acetaminophen 650 mg 07/19/19 20:20 Tylenol PO Q6H PRN Pain MILD(1-3)/Fever >100.5/DASH Diphenhydramine HCl 25 mg 07/19/19 20:20 Benadryl PO Q8H PRN Itching Docusate Sodium 100 mg 07/19/19 22:00 07/20/19 09:19 Colace PO 100 mg BID HALINA Administration Fluticasone Propionate 50 mcg 07/19/19 22:00 07/19/19 23:05 Flonase NS 50 mcg BID HALINA Administration Hydroxyzine HCl 10 mg 07/20/19 07:33 Atarax PO Q6HR PRN Itching Lactated Ringer's 1,000 mls @ 125 mls/hr 07/19/19 21:00 Lactated Ringers IV DIRECT HALINA Cefazolin Sodium 2 gm/ Sodium 100 mls @ 200 mls/hr 07/20/19 07:35 Chloride IV 07/20/19 10:00 ONCE NR Protocol Metoclopramide HCl 10 mg 07/19/19 20:20 Reglan PO Q6H PRN Nausea And Vomiting Metoprolol Tartrate 25 mg 07/20/19 10:00 Metoprolol PO DAILY [facility] Miscellaneous Medication 1 each 07/20/19 10:00 Darunavir/Cob/Emtri/Tenof Alaf [Symtuza [phone] Mg Tab] PO DAILY [facility] Morphine Sulfate 2 mg 07/19/19 20:24 07/19/19 23:10 Morphine IV 2 mg Q4H PRN Administration Pain, Moderate (4-6) Ondansetron HCl 4 mg 07/19/19 20:20 07/19/19 23:19 Zofran IV 4 mg Q8H PRN Administration N/V unrelieved by Reglan Oxycodone/Acetaminophen 1 tab 07/19/19 20:20 07/20/19 04:34 Percocet 5/325 PO 1 tab Q6H PRN Administration Pain, Moderate (4-6) Sodium Chloride 10 ml 07/19/19 20:20 Sodium Chloride Flush Syringe 10 Ml IV PRN PRN LINE FLUSH
[2019-07-20] MEDS: FLUTICASONE PROPIONATE NASAL SPRAY 16 GM NS SCH (09:46)
[2019-07-20] MEDS ORDERED: METOPROLOL TARTRATE 25 MG TAB PO SCH (10:00)
[2019-07-20] MEDS ORDERED: NON-FORMULARY EACH (Losartan/Hydrochlorothiazide [Losartan-Hctz 100-25 Mg Tab] 1 EACH) PO SCH (10:00)
[2019-07-20] MEDS ORDERED: [UNRECOGNIZED DRUG - OTHER] PO SCH (10:00)
[2019-07-20] MEDS ORDERED: FUROSEMIDE 40 MG/4 ML INJ IV ONE (13:41)
[2019-07-20 17:16] VITALS: BP 106/61
== END 2019-07-20 18:40 | disposition home or self-care (01) ==
LOC: OR 10:08 → OB 20:20
PROVIDERS: ADMIT Surgery; ATTEND Surgery
DX: C50.911 Malignant neoplasm of unspecified site of right female breast (principal); C50.912 Malignant neoplasm of unspecified site of left female breast
CPT/HCPCS: 19303; 36415; 38525; 38792; 76098; 78801; 80048; 85025; 88305; 88307; 88331; 88333; 88342; 96365; 96375; A9541; G0378; J0690; J1170; J1940; J2250; J2270; J2370; J2405; J2704; J3010; J7120; Q9968

== ENCOUNTER 2019-08-10 10:54 | Outpatient (CLI) | payer MEDICARE ==
--- NOTE | 2019-08-10 12:43 | Vascular Lab Report ---
DUPLEX DOPPLER LOWER EXTREMITY VEINS, BILATERAL INDICATION: E60.0 EDEMA OF LOWER EXTREMITY PRESENT/HTN/BREAST CANCER. TECHNIQUE: Duplex doppler imaging was performed through the veins of both lower extremities using venous sea libby and other maneuvers. COMPARISON: None available. FINDINGS: Right Common Femoral vein: Negative. Right Superficial Femoral vein: Negative. Right Popliteal vein: Negative. Right Calf veins: Negative. Left Common Femoral vein: Negative. Left Superficial Femoral vein: Negative. Left Popliteal vein: Negative. Left Calf veins: Negative. Additional findings: None. IMPRESSION: 1. No sonographic evidence for DVT in either lower extremity. Signer Name: Isaiah Cloud MD Signed: 08/10/2019 12:39 PM Workstation Name: [id number]
== END 2019-08-10 10:55 | disposition home or self-care (01) ==
LOC: VAS 10:54
PROVIDERS: ATTEND Internal Medicine Infectious Disease
DX: R60.0 Localized edema (principal); C50.911 Malignant neoplasm of unspecified site of right female breast; I10 Essential (primary) hypertension; B20 Human immunodeficiency virus [HIV] disease
CPT/HCPCS: 93970

== ENCOUNTER 2019-09-07 08:38 | Day surgery (SDC) | payer MEDICARE ==
[2019-09-07] MEDS ORDERED: MIDAZOLAM 2 MG/2 ML INJ IV NR (09:42)
[2019-09-07] MEDS ORDERED: LACTATED RINGERS 1,000 ML IV SCH ×2 (09:42→10:00)
[2019-09-07 09:45] LABS: Hematocrit 34.3 % (30.3-42.9); Hemoglobin 11.3 gm/dl (10.1-14.3); Mean Corpuscular HGB Conc 33 % (30-34); Mean Corpuscular Volume 92 fl (79-97); Platelet Count 196 K/mm3 (140-440); Red Blood Count 3.74 M/mm3 (3.65-5.03); Red Cell Distribution Width 13.2 % (13.2-15.2)
--- NOTE | 2019-09-07 09:48 | Anesthesia Day of Surgery ---
Anesthesia Day of Surgery - Day of Surgery Patient Examined: Yes Patient H&P Reviewed: Yes Patient is NPO: Yes Beta Blockers: Yes
--- NOTE | 2019-09-07 09:50 | Anesthesia Consultation ---
Anesthesia Consult and Med Hx Date of service: 09/07/19 - Airway Anesthetic Teeth Evaluation: Good ROM Head & Neck: Adequate Mental/Hyoid Distance: Adequate Mallampati Class: Class II Intubation Access Assessment: Good - Pulmonary Exam CTA: Yes - Cardiac Exam Cardiac Exam: RRR - Pre-Operative Health Status ASA Pre-Surgery Classification: ASA3 Proposed Anesthetic Plan: General - Pulmonary Hx Smoking: Yes (1 PPD X 40 YRS) Hx Asthma: No COPD: No Hx Sleep Apnea: No (MIGUEL PRE SCREEN LOW RISK) - Cardiovascular System Hx Hypertension: Yes (X 5 YRS. Limited activity because of leg pain) Hx Heart Attack/AMI: No Hx Pacemaker: No Hx Internal Defibrillator: No - Central Nervous System Hx Seizures: No Hx Back Pain: Yes (SCIATIC PAIN) - Endocrine Hx Renal Disease: Yes (TYSON-resolved now) Hx Liver Disease: Yes (hep C) - Hematic Hx Anemia: Yes Hx Sickle Cell Disease: No - Other Systems Hx Substance Use: Yes (FORMER HEROINE USER-STOPPED X 21 YRS) Hx Cancer: Yes - Additional Comments Anesthesia Medical History Comments: HIV. Breast Ca s/p bi mastectomy with chem therapy
[2019-09-07] MEDS ORDERED: MEPERIDINE 25 MG/1 ML INJ IV PRN (09:51)
[2019-09-07] MEDS ORDERED: fentaNYL 100 MCG/2 ML INJ IV PRN (09:51)
[2019-09-07] MEDS ORDERED: ONDANSETRON 4 MG/2 ML INJ IV PRN (09:51)
[2019-09-07] MEDS ORDERED: KETOROLAC 30 MG/1 ML INJ IV PRN (09:51)
[2019-09-07] MEDS ORDERED: ceFAZolin/STERILE WATER 2 GM/20 ML SYRINGE IV NR (10:00)
[2019-09-07 10:09] LABS: BUN/Creatinine Ratio 17; Blood Urea Nitrogen 15 mg/dL (7-17); Calcium 9.1 mg/dL (8.4-10.2); Hemolysis Index 94
[2019-09-07] MEDS ORDERED: propofoL 200 MG/20 ML VIAL IV ONE (10:21)
[2019-09-07] MEDS ORDERED: LIDOCAINE (1%) 10 MG/1 ML VIAL 20 ML MDV ONE (10:26)
[2019-09-07] MEDS ORDERED: BUPIVACAINE/PF (0.25%) 2.5 MG/ML 30 ML VIAL INFILTRATI ONE ×2 (10:26→11:23)
[2019-09-07] MEDS ORDERED: ONDANSETRON 4 MG/2 ML INJ ONE (11:07)
[2019-09-07] MEDS ORDERED: LIDOCAINE MPF (2%) 20 MG/1 ML VIAL 5 ML ONE (11:07)
[2019-09-07] MEDS ORDERED: dexAMETHasone 20 MG/5 ML VIAL ONE (11:07)
[2019-09-07] MEDS ORDERED: fentaNYL 100 MCG/2 ML INJ ONE (11:08)
[2019-09-07] MEDS ORDERED: LIDOCAINE (1%) 10 MG/1 ML VIAL 20 ML MDV INFILTRATI ONE (11:23)
[2019-09-07] MEDS ORDERED: SODIUM CHLORIDE 0.9% IRR 1,500 ML BOTTLE IR ONE (11:24)
[2019-09-07] MEDS ORDERED: PHENYLEPHRINE 10 MG/1 ML INJ SDV ONE (13:09)
[2019-09-07] MEDS ORDERED: LACTATED RINGERS 1,000 ML ONE (13:32)
--- NOTE | 2019-09-07 13:42 | Operative Report ---
Operative Report Operative Report: Date of Service: August Preoperative diagnosis: Bilateral Breast Cancer, S/p bilateral mastectomies, bilateral axillary lymph node biopsy, positive right sentinel lymph nodes Postoperative diagnosis: Same Procedure: Right Axillary Lymph Node Biopsy Surgeon: Odessa Zamudio M.D. Senior Copywriter: None Anesthesia: General Findings: Long Thoracic Nerve and Thoracodorsal Neuorvascular bundles noted and protected Complications: None Drains: One 19 Sami KARTIK Estimated blood loss: Minimal Disposition: PACU in good condition Indications for operative procedure: This is a 69-year-old lady with bilateral breast cancer. Right breast multicentric Infiltrating Ductal Carcinoma, grade 2, ER/DC positive, HER2 negative, [id number]; Left breast Invasive Lobular carcinoma, grade 2, ER/DC positive, HER2 negative, [id number]. Patient completed 4 cycles of TC/Onpro chemotherapy (20% dose reduction). She underwent post chemotherapy imaging which showed partial response of the right breast, and complete response of the left breast. Patient underwent a bilateral mastectomy with bilateral sentinel lymph node biopsies. On final pathology it was noted that from the right axilla there was one lymph node was positive for micrometastasis (1.5 mm) and 2 other lymph nodes with isolated tumor cells. All not seen on frozen section during sentinel lymph node biopsy. Procedure in detail: The patient was taken to the operating room and was placed supine on the operating table. General anesthesia was administered. Right axilla and chest were prepped and draped in the normal sterile operative fashion. Timeout was performed. Incision was made below the hairline in the right axilla. The clavipectoral fascia was incised along the pectoralis major and the pectoralis major and minor were freed from surrounding fat and malina tissue. Dissection progressed first under the pectoralis major and then minor muscle. T he pectoral muscles were retracted medially. The level II malina tissue was included in the dissection. The axillary vein was identified and cleared of overlying fat. The thoracodorsal nerve was identified and preserved. The long thoracic nerve was then identified along the edge of the latissimus dorsi on the chest wall and preserved. The remaining malina tissue was carefully removed, taking care to protect the nerves. The axillary malina tissue was then removed and submitted for pathology evaluation. The wound was irrigated and dried. Hemostasis was obtained. Patient tolerated surgery very well and was awakened from anesthesia without any complications and then transported to PACU in good condition.
[2019-09-07] MEDS: HYDROmorphone 1 MG/1 ML INJ IV PRN ×2 (14:00→14:12)
--- NOTE | 2019-09-07 14:00 | Short Stay Summary ---
Short Stay Documentation Date of service: 09/07/19 - History H&P: obtained from office - Allergies and Medications Current Medications: Allergies Iodinated Contrast Media [Iodinated Contrast- Oral and IV Dye] Allergy (Verified 09/06/19 12:39) Swelling , ITCHING TEGADERM DRESSING Adverse Reaction (Uncoded 03/22/19 16:31) BLISTERS , ITCHING Home Medications Medication Instructions Recorded Confirmed Last Taken Type Darunavir/Cob/Emtri/Tenof Alaf 1 each PO DAILY 03/22/19 09/06/19 09/06/19 History [Symtuza 589-596-650-10 mg Tab] Fluticasone [Flonase] 1 spray NS BID 03/22/19 09/06/19 09/06/19 History Losartan/Hydrochlorothiazide 1 each PO DAILY 03/22/19 09/06/19 09/06/19 History [Losartan-Hctz 100-25 mg Tab] hydrOXYzine HCL [Atarax] 10 mg PO Q6HR PRN 03/22/19 09/06/19 09/06/19 History Metoprolol [Lopressor] 25 mg PO DAILY 07/14/19 09/07/19 09/07/19 07:30 History Atovaquone [Mepron] 750 mg PO BID 09/06/19 09/06/19 09/06/19 History Furosemide [Lasix] 20 mg PO QDAY 09/06/19 09/06/19 09/06/19 History HYDROcodone/APAP 5-325 [[place] 1 each PO Q6HR PRN #12 tablet 09/07/19 Unknown Rx 5/325] Active Medications Cefazolin Sodium (Ancef/Sterile Water 2 Gm/20 Ml) 2 gm IV PREOP NR Stop: 09/07/19 16:00 Fentanyl (Sublimaze) 50 mcg IV Q5MIN PRN PRN Reason: Pain , Severe (7-10) Stop: 09/07/19 23:00 Hydromorphone HCl (Dilaudid) 0.5 mg IV Q10MIN PRN PRN Reason: Pain , Severe (7-10) Stop: 09/07/19 23:00 Lactated Ringer's (Lactated Ringers) 1,000 mls @ 100 mls/hr IV DIRECT HALINA - Brief post op/procedure progress note Date of procedure: 09/07/19 Pre-op diagnosis: Bilateral Breast Cancer Post-op diagnosis: same Procedure: Right Axillary Lymph Node Dissection (Completion) Anesthesia: ZACKERY Surgeon: MARNIE HOGUE Estimated blood loss: minimal Pathology: list Specimen disposition: to lab Condition: stable - Disposition Condition at discharge: Stable Disposition: [id number]-01 TO HOME OR SELFCARE Short Stay Discharge Plan Activity: no driving until cleared by PCP Weight Bearing Status: Full Weight Bearing Diet: regular Wound: keep clean and dry, per your surgeon's advice (No showering for 48 hours: No sitting in standing water - no baths, no pools, no lakes) Special Instructions: no heavy lifting Follow up with: MARNIE HOGUE MD [Staff Physician] - 7 Days Prescriptions: HYDROcodone/APAP 5-325 [[place] 5/325] 1 each PO Q6HR PRN #12 tablet PRN Reason: Pain
[2019-09-07] MEDS ORDERED: HYDROcodone/ACETAMINOPHEN 5-325 MG TAB PO PRN (14:39)
[2019-09-07 15:20] VITALS: BP 137/85
== END 2019-09-07 15:46 | disposition home or self-care (01) ==
LOC: OR 08:38
PROVIDERS: ATTEND Surgery
DX: C50.411 Malignant neoplasm of upper-outer quadrant of right female breast (principal); C50.412 Malignant neoplasm of upper-outer quadrant of left female breast; I10 Essential (primary) hypertension; F41.9 Anxiety disorder, unspecified; F17.210 Nicotine dependence, cigarettes, uncomplicated; Z88.8 Allergy status to other drugs, medicaments and biological substances; Z79.899 Other long term (current) drug therapy; Z90.710 Acquired absence of both cervix and uterus; Z98.890 Other specified postprocedural states; Z87.440 Personal history of urinary (tract) infections
CPT/HCPCS: 36415; 38525; 80048; 85027; 88307; J1100; J1170; J2250; J2370; J2405; J2704; J3010; J7120